=== PATIENT | male | born 1945 | race Caucasian/White ===

== ENCOUNTER 2016-04-09 12:36 | Inpatient (IN) | payer OTHER ==
[~2016-04-09] VITALS: Ht 182.9 cm; Wt 149.1 kg
[2016-04-09] MEDS ORDERED: OXYC15TA89 PO (13:12)
[2016-04-09] MEDS ORDERED: GARL1CAP6 (13:12)
[2016-04-09] MEDS ORDERED: ONDANSETRON INJ 2 MG/ML 2 ML VIAL IV STA (13:47)
[2016-04-09] MEDS ORDERED: MoRPHine SULFATE 4 MG/ML 1 ML CARP\\VIAL IV STA ×2 (13:47→18:09)
[2016-04-09 14:19] LABS: BASO % 0.3 %; BASO ABS # 0.03 K/uL (0-0.2); COMPLETE YES; EOS % 2.1 %; HEMATOCRIT 30.6 % (42-52); IG% 0.6 %; LYMPH % 12.1 %; LYMPH ABS # 1.14 K/uL (1.2-3.4); MEAN CELL VOLUME 91.6 fL (80-100); MEAN CORPUSCULAR HEMOGLOBIN 28.7 pg (25-34); MEAN CORPUSCULAR HGB CONC 31.4 g/dl (32-36); MEAN PLATELET VOLUME 10.7 fL (7.4-10.4); MONO % 9.4 %; NEUT % 75.5 %; PLATELET COUNT 314 K/uL (130-400); RED BLOOD COUNT 3.34 M/uL (4.7-6.1); WHITE BLOOD COUNT 9.39 K/uL (4.8-10.8)
--- NOTE | 2016-04-09 14:37 | DIAGNOSTIC IMAGING REPORT ---
LEFT KNEE 3 VIEWS CLINICAL HISTORY: Knee pain pain COMPARISON: None. DISCUSSION: Severe degenerative change medial joint compartment as well as patellofemoral joint compartment. Reactive osteophytic changes throughout. No evidence for fracture. There is no evidence for soft tissue swelling. IMPRESSION: Severe degenerative change medial joint compartment as well as patellofemoral joint. Electronically signed by: Honorio Dickinson M.D. 04/09/2016 2:36 PM Dictated Date/Time: 04/09/2016 2:36 PM
[2016-04-09 14:38] LABS: BUN/CREATININE RATIO 22.2 (10-20); CALCIUM 9.2 mg/dl (8.5-10.1); CREATININE 1.1 mg/dl (0.60-1.40); POTASSIUM 3.6 mmol/L (3.5-5.1)
[2016-04-09 14:40] LABS: ALB/GLOB RATIO 0.4 (0.9-2)
--- NOTE | 2016-04-09 14:41 | DIAGNOSTIC IMAGING REPORT ---
RIGHT KNEE 3 VIEWS CLINICAL HISTORY: Right knee pain. FINDINGS: AP, crosstable lateral, and sunrise views of the right knee are obtained. No prior studies are available for comparison at the time of dictation. The skeletal structures are osteopenic. No fracture is seen. There is advanced degenerative joint space narrowing in the medial and patellofemoral compartments. There is complete loss of the joint space in the medial compartment with bony sclerosis and subchondral cyst formation. Only mild narrowing is seen in the lateral compartment. There are large medial marginal osteophytes and patellar enthesophytes. There are small lateral marginal osteophytes. A joint effusion is noted. Mild soft tissue swelling is present around the knee. IMPRESSION: 1. Joint effusion and soft tissue swelling. No fracture is seen. 2. Osteopenia and advanced arthritic change as above. Electronically signed by: Reynold Conde M.D. 04/09/2016 2:40 PM Dictated Date/Time: 04/09/2016 2:38 PM
--- NOTE | 2016-04-09 15:11 | EMERGENCY ROOM VISIT NOTE ---
ED Visit Note First contact with patient: 13:30 This Patient was discussed with the physician Barrer And Tacker, Donal Tovar PA-C. The pertinent historical and physical exam findings were confirmed. I agree with the studies ordered and with the interpretations of these studies. I agree with the disposition and care plan.
--- NOTE | 2016-04-09 17:34 | EMERGENCY ROOM VISIT NOTE ---
History First contact with patient: 13:30 Chief Complaint: KNEEPAIN Stated Complaint: KNEE/LEG PAIN History of Present Illness The patient is a 70 year old male who presents to the Emergency Room via ambulance accompanied by daughter and with complaints of "knee/leg pain". Patient states that he has chronic knee pain and wants to be placed in a home for rehabilitation until his knee replacement scheduled in April. He states that he is unable to get around and perform his daily activities of living. The right knee pain is worse than the left. He follows with Dr. Mcgill of [facility] and is scheduled for surgery of right knee replacement 05/27/2016. Patient and family expressed concern as he has been laying in bed for one week. He states he cannot get around because of the knee pain. He is unable to walk secondary to the knee pain. He is tried injections in the knees without relief. He also is requesting something to control his pain. He rates the knee pain bilaterally at rest as a 5/10. If he stands on the knees it increases to a 27/10. Review of Systems A complete 10-point Review of Systems was discussed with the patient, with pertinent positives and negatives listed in the History of Present Illness. All remaining Review of Systems questions can be considered negative unless otherwise specified. Past Medical/Surgical History Medical Problems: (1) Intractable pain Osteoarthritis of knees Social History Smoking Status: Never Smoker Current/Historical Medications Scheduled Oxycodone Hcl (Oxycontin), 15 MG PO Q12 Miscellaneous Medications Garlic (Garlic) Physical Exam Vital Signs Date Time Temp Pulse Resp B/P Pulse Ox O2 Delivery O2 Flow Rate FiO2 04/09/16 20:31 80 18 126/72 92 Room Air 04/09/16 17:58 78 18 120/73 93 Nasal Cannula 04/09/16 16:37 76 20 114/73 95 Room Air 04/09/16 15:07 70 18 100/71 92 Nasal Cannula 2.0 04/09/16 12:47 36.6 68 18 128/69 90 Room Air Pain Rating (0-10): 4.0 Physical Exam VITAL SIGNS - Vital signs and nursing notes were reviewed. Patient is afebrile , he is normotensive, is not tachycardic and is saturating on room air 90%, and uses 2 L at home. GENERAL -70-year-old male appearing his stated age who is in no acute distress. Patient converses well. Communicates well with provider and answers questions appropriately. SKIN - Without rashes. No petechial rashes. No dependent edema in the legs. HEAD - NC/AT. EYES - Sclera anicteric. Palpebral conjunctiva pink and moist with no injection noted. EARS - No deformities of external structures noted on gross examination bilaterally. NOSE - Midline and without cyanosis. No epistaxis or purulent drainage noted. Septum midline without deviation or septal hematoma noted. MOUTH/OROPHARYNX - Without perioral cyanosis. NECK - Neck with FROM. LUNGS - Chest wall symmetric without accessory muscle use, intercostals retractions, or central cyanosis. Normal vesicular breath sounds CTA B/L. No wheezes, rales, or rhonchi appreciated. CARDIAC - RRR with S1/S2. No murmur, rubs, or gallops appreciated. ABDOMEN - Abdominal contour without pulsations or visible masses. BS normoactive all four quadrants. No tenderness, palpable masses, hepatosplenomegaly, or ascites noted. EXTREMITIES - No clubbing or peripheral cyanosis. No pretibial edema present. +5 /5 strength noted in UE/LE bilaterally. There is tenderness with flexion of the knees. There is no erythema or evidence of cellulitis of the knees. NEUROLOGIC - Cranial nerves II through XII grossly intact. Sensory intact to light touch throughout. PSYCH - A&Ox3 and cooperates fully with examiner. Pt is very pleasant and interacts well with examiner. Medical Decision & Procedures ER Provider Diagnostic Interpretation: RIGHT KNEE 3 VIEWS CLINICAL HISTORY: Right knee pain. FINDINGS: AP, crosstable lateral, and sunrise views of the right knee are obtained. No prior studies are available for comparison at the time of dictation. The skeletal structures are osteopenic. No fracture is seen. There is advanced degenerative joint space narrowing in the medial and patellofemoral compartments. There is complete loss of the joint space in the medial compartment with bony sclerosis and subchondral cyst formation. Only mild narrowing is seen in the lateral compartment. There are large medial marginal osteophytes and patellar enthesophytes. There are small lateral marginal osteophytes. A joint effusion is noted. Mild soft tissue swelling is present around the knee. IMPRESSION: 1. Joint effusion and soft tissue swelling. No fracture is seen. 2. Osteopenia and advanced arthritic change as above. Electronically signed by: Reynold Conde M.D. 04/09/2016 2:40 PM Dictated Date/Time: 04/09/2016 2:38 PM LEFT KNEE 3 VIEWS CLINICAL HISTORY: Knee pain pain COMPARISON: None. DISCUSSION: Severe degenerative change medial joint compartment as well as patellofemoral joint compartment. Reactive osteophytic changes throughout. No evidence for fracture. There is no evidence for soft tissue swelling. IMPRESSION: Severe degenerative change medial joint compartment as well as patellofemoral joint. Electronically signed by: Honorio Dickinson M.D. 04/09/2016 2:36 PM Dictated Date/Time: 04/09/2016 2:36 PM Laboratory Results 04/09/16 14:00 Red Blood Count 3.34, Mean Corpuscular Volume 91.6, Mean Corpuscular Hemoglobin 28.7, Mean Corpuscular Hemoglobin Concent 31.4, Mean Platelet Volume 10.7, Neutrophils (%) (Auto) 75.5, Lymphocytes (%) (Auto) 12.1, Monocytes (%) (Auto) 9.4, Eosinophils (%) (Auto) 2.1, Basophils (%) (Auto) 0.3, Neutrophils # (Auto) 7.08, Lymphocytes # (Auto) 1.14, Monocytes # (Auto) 0.88, Eosinophils # (Auto) 0.20, Basophils # (Auto) 0.03 04/09/16 14:00 Test 04/09/16 14:00 White Blood Count 9.39 K/uL (4.8-10.8) Red Blood Count 3.34 M/uL (4.7-6.1) Hemoglobin 9.6 g/dL (14.0-18.0) Hematocrit 30.6 % (42-52) Mean Corpuscular Volume 91.6 fL (80-100) Mean Corpuscular Hemoglobin 28.7 pg (25-34) Mean Corpuscular Hemoglobin Concent 31.4 g/dl (32-36) Platelet Count 314 K/uL (130-400) Mean Platelet Volume 10.7 fL (7.4-10.4) Neutrophils (%) (Auto) 75.5 % Lymphocytes (%) (Auto) 12.1 % Monocytes (%) (Auto) 9.4 % Eosinophils (%) (Auto) 2.1 % Basophils (%) (Auto) 0.3 % Neutrophils # (Auto) 7.08 K/uL (1.4-6.5) Lymphocytes # (Auto) 1.14 K/uL (1.2-3.4) Monocytes # (Auto) 0.88 K/uL (0.11-0.59) Eosinophils # (Auto) 0.20 K/uL (0-0.5) Basophils # (Auto) 0.03 K/uL (0-0.2) RDW Standard Deviation 47.1 fL (36.4-46.3) RDW Coefficient of Variation 14.1 % (11.5-14.5) Immature Granulocyte % (Auto) 0.6 % Immature Granulocyte # (Auto) 0.06 K/uL (0.00-0.02) Anion Gap 8.0 mmol/L (3-11) Est Creatinine Clear Calc Drug Dose 90.3 ml/min Estimated GFR () 79.5 Estimated GFR (Non- 68.6 BUN/Creatinine Ratio 22.2 (10-20) Calcium Level 9.2 mg/dl (8.5-10.1) Total Bilirubin 0.3 mg/dl (0.2-1) Aspartate Amino Transf (AST/SGOT) 93 U/L (15-37) Alanine Aminotransferase (ALT/SGPT) 146 U/L (12-78) Alkaline Phosphatase 128 U/L (45-117) Total Creatine Kinase 36 U/L (39-308) Total Protein 6.9 gm/dl (6.4-8.2) Albumin 2.0 gm/dl (3.4-5.0) Globulin 4.9 gm/dl (2.5-4.0) Albumin/Globulin Ratio 0.4 (0.9-2) Medications Administered Medications (Trade) Dose Ordered Sig/Trang Route Start Time Stop Time Status Last Admin Dose Admin Morphine Sulfate (MoRPHine SULFATE INJ) 4 mg NOW STAT IV 04/09/16 13:47 04/09/16 13:50 DC 04/09/16 14:09 4 MG Ondansetron HCl (Zofran Inj) 4 mg NOW STAT IV 04/09/16 13:47 04/09/16 13:50 DC 04/09/16 14:08 4 MG Morphine Sulfate (MoRPHine SULFATE INJ) 4 mg NOW STAT IV 04/09/16 18:09 04/09/16 18:10 DC 04/09/16 18:32 4 MG Medical Decision Patient was seen and evaluated as above. The patient presents via ambulance for chronic knee pain and once placed in a home or rehabilitation facility for his pain and ambulatory dysfunction. He is companied by his family who was concern over his ability to perform his daily attacks of living as a do have a multi-story home. Patient has been in bed for 1 week straight. Radiographs were obtained of the knees to establish a baseline and her noted above. IV access was initiated. The above workup was completed. His CBC reveals an anemia with hemoglobin of 9.6 and hematocrit of 30.6. No leukocytosis. No Abnormality. BUN is slightly elevated at 24. There is an elevation of the AST and ALTs at 93 and 146 respectively. Alkaline phosphatase is also elevated at 128. Radiograph results as above revealed degenerative changes that are stable. I did discuss the case with Dr. Mcgill at 2:40 PM. Case was thoroughly discussed. We talked about potential options at an extended care facility and working with social workers to help achieve this. Posterior concern is the patient had been in bed for one week straight. We discussed with the patient should likely not be admitted for the knee pain but at the time of discussion we do not have any labs back. Once the patient's labs were obtained it was evident that there was a new onset hemoglobin is I compared this to his previous lab work which was sent from [facility]. The patient's family is concerned that he has been laying in bed for nearly one week now. The patient also has had a change in his hemoglobin as compared to previous blood work. The case was discussed with my attending I do believe the patient would benefit from inpatient management. The case was discussed with the hospitalist who agreed to admit the patient. Please refer to further documentation regarding his stay. In the evaluation and treatment of this patient, the following differential diagnoses were considered: Patellar Fracture, Tibial Plateau Fracture, Distal Femur Fracture, ACL Injury, PCL Injury, Collateral Ligament Injury, Pes Anserine Bursitis, Maisonneuve Fracture. Impression Primary Impression: Knee pain Additional Impressions: Anemia Elevated AST (SGOT) ALT (SGPT) level raised Departure Information Dispostion Admitted as an inpatient Condition FAIR Referrals Melissa Florian M.D. (PCP) Patient Instructions My [facility] Problem Qualifiers Primary Impression: Knee pain Laterality: bilateral Chronicity: chronic Qualified Codes: M25.561 - Pain in right knee; M25.562 - Pain in left knee; G89.29 - Other chronic pain Additional Impressions:
[2016-04-09] MEDS ORDERED: POLYETHYLENE (MIRALAX) 17 GM PACK PO PRN (19:00)
[2016-04-09] MEDS ORDERED: ONDANSETRON INJ 2 MG/ML 2 ML VIAL IV PRN (19:00)
[2016-04-09] MEDS ORDERED: ENOXAPARIN 40 MG/0.4 ML SYR SQ SCH (19:00)
[2016-04-09] MEDS ORDERED: ALUMINUM/MAGNESIUM/SIMETH (MAALOX MAX) 30 ML UDC PO PRN (19:00)
--- NOTE | 2016-04-09 19:31 | History and Physical ---
History & Physical Date & Time of Service: Apr 09, 2016 at 19:05 Chief Complaint: Knee/Leg Pain Primary Care Physician: Melissa Florian M.D. History of Present Illness Source: patient, family 70 y/o M with chronic OA, CHAU, HTN, gout here with c/o of severe knee pain . He has chronic OA and is scheduled for knee surgery on 05/27/16 by . He has severe pain and finds it very hard to accomplish his daily activities without pain. Per family , he has been confined to the bed for about a week due to weakness and pain in his legs. denies any loss of strength and numbness and tingling. pain is mainly in knees with no radiation, 5/10 and >10/10 when worse. denies any CP/SOB/palpitations, N/V/abdominal pain Social History Smoking Status: Never Smoker Allergies Coded Allergies: No Known Allergies (Unverified , 04/09/16) Home Medications Scheduled Amlodipine Besylate (Norvasc), 10 MG PO QAM Aspirin (Aspirin Ec), 81 MG PO QAM Atorvastatin (Lipitor), 10 MG PO HS Benazepril/Hctz (Lotensin Hct), 1 TAB PO QAM Fluoxetine Hcl (Fluoxetine Hcl), 60 MG PO QAM Garlic (Garlic), 1,000 MG PO DAILY Terazosin (Hytrin), 5 MG PO HS Scheduled PRN Colchicine (Colchicine), 0.6 MG PO BID PRN for Gout Flare Up Diclofenac Sodium (Topical) (Voltaren 1% Top Gel), 2 GM TOP QID PRN for Severe Pain Oxycodone/Acetaminophen 10MG/325MG (Percocet 10MG/325MG), 1 TAB PO Q6H PRN for Severe Pain Review of Systems Constitutional: + weakness, No chills, No fever Eyes: No worsening of vision ENT: No hearing loss Respiratory: No cough, No shortness of breath, No sputum Cardiovascular: No chest pain Abdomen: No nausea, No pain, No vomiting Musculoskeletal: + joint pain Genitourinary - Male: No hematuria Psychiatric: + depression symptoms Physical Exam Vital Signs Date Time Temp Pulse Resp B/P Pulse Ox O2 Delivery O2 Flow Rate FiO2 04/09/16 17:58 78 18 120/73 93 Nasal Cannula 04/09/16 16:37 76 20 114/73 95 Room Air 04/09/16 15:07 70 18 100/71 92 Nasal Cannula 2.0 04/09/16 12:47 36.6 68 18 128/69 90 Room Air General Appearance: WD/WN, no apparent distress, + obese Head: normocephalic Eyes: normal inspection ENT: normal ENT inspection, hearing grossly normal Neck: supple Respiratory/Chest: chest non-tender, lungs clear, normal breath sounds, no respiratory distress, no accessory muscle use Cardiovascular: regular rate, rhythm Abdomen/GI: normal bowel sounds, non tender, soft Extremities/Musculoskelatal: no pedal edema Neurologic/Psych: alert, normal mood/affect, oriented x 3 Skin: normal color Diagnostics Laboratory Results Results Past 24 Hours Test 04/09/16 14:00 Range/Units White Blood Count 9.39 4.8-10.8 K/uL Red Blood Count 3.34 4.7-6.1 M/uL Hemoglobin 9.6 14.0-18.0 g/dL Hematocrit 30.6 42-52 % Mean Corpuscular Volume 91.6 80-100 fL Mean Corpuscular Hemoglobin 28.7 25-34 pg Mean Corpuscular Hemoglobin Concent 31.4 32-36 g/dl Platelet Count 314 130-400 K/uL Mean Platelet Volume 10.7 7.4-10.4 fL Neutrophils (%) (Auto) 75.5 % Lymphocytes (%) (Auto) 12.1 % Monocytes (%) (Auto) 9.4 % Eosinophils (%) (Auto) 2.1 % Basophils (%) (Auto) 0.3 % Neutrophils # (Auto) 7.08 1.4-6.5 K/uL Lymphocytes # (Auto) 1.14 1.2-3.4 K/uL Monocytes # (Auto) 0.88 0.11-0.59 K/uL Eosinophils # (Auto) 0.20 0-0.5 K/uL Basophils # (Auto) 0.03 0-0.2 K/uL RDW Standard Deviation 47.1 36.4-46.3 fL RDW Coefficient of Variation 14.1 11.5-14.5 % Immature Granulocyte % (Auto) 0.6 % Immature Granulocyte # (Auto) 0.06 0.00-0.02 K/uL Sodium Level 142 136-145 mmol/L Potassium Level 3.6 3.5-5.1 mmol/L Chloride Level 103 98-107 mmol/L Carbon Dioxide Level 31 21-32 mmol/L Anion Gap 8.0 3-11 mmol/L Blood Urea Nitrogen 24 7-18 mg/dl Creatinine 1.10 0.60-1.40 mg/dl Est Creatinine Clear Calc Drug Dose 90.3 ml/min Estimated GFR () 79.5 Estimated GFR (Non- 68.6 BUN/Creatinine Ratio 22.2 10-20 Random Glucose 103 70-99 mg/dl Calcium Level 9.2 8.5-10.1 mg/dl Total Bilirubin 0.3 0.2-1 mg/dl Aspartate Amino Transf (AST/SGOT) 93 15-37 U/L Alanine Aminotransferase (ALT/SGPT) 146 12-78 U/L Alkaline Phosphatase 128 45-117 U/L Total Creatine Kinase 36 39-308 U/L Total Protein 6.9 6.4-8.2 gm/dl Albumin 2.0 3.4-5.0 gm/dl Globulin 4.9 2.5-4.0 gm/dl Albumin/Globulin Ratio 0.4 0.9-2 Diagnostic Radiology RIGHT KNEE 3 VIEWS CLINICAL HISTORY: Right knee pain. FINDINGS: AP, crosstable lateral, and sunrise views of the right knee are obtained. No prior studies are available for comparison at the time of dictation. The skeletal structures are osteopenic. No fracture is seen. There is advanced degenerative joint space narrowing in the medial and patellofemoral compartments. There is complete loss of the joint space in the medial compartment with bony sclerosis and subchondral cyst formation. Only mild narrowing is seen in the lateral compartment. There are large medial marginal osteophytes and patellar enthesophytes. There are small lateral marginal osteophytes. A joint effusion is noted. Mild soft tissue swelling is present around the knee. IMPRESSION: 1. Joint effusion and soft tissue swelling. No fracture is seen. 2. Osteopenia and advanced arthritic change as above. LEFT KNEE 3 VIEWS CLINICAL HISTORY: Knee pain pain COMPARISON: None. DISCUSSION: Severe degenerative change medial joint compartment as well as patellofemoral joint compartment. Reactive osteophytic changes throughout. No evidence for fracture. There is no evidence for soft tissue swelling. IMPRESSION: Severe degenerative change medial joint compartment as well as patellofemoral joint. Impression Assessment and Plan 70 y/o M with chronic OA, CHAU here with c/o of severe knee pain causing him to be confined to the bed for about a week. Acute worsening of OA: - Decompensated /confined to bed since 1 week - Pain control with Ultram 50 mg q6h - PT/OT Elevated liver enzymes: AST 93, ALT 146, Alk phosphatase 128 likely sec to acetaminophen use in oxycodone Monitor Avoid Tylenol Anemia: Hgb dropped from 11 on 03/18 to 9.6 today no active bleeding Monitor Hgb Hemoccult DVT : SCDs Full code Level of Care Med/Surg Resuscitation Status FULL RESUSCITATION VTE Prophylaxis VTE Risk Assessment Done? Y/N: Yes Risk Level: Moderate Given or contraindicated: SCD's Reviewed: Pt Seen/Exam by Me, RN Notes, HO Notes, Prior Records, Labs History Resident Physician Supervision Note: I was present with Dr. Rhoades during the history and exam. I discussed the case with the resident and agree with the findings and plan as documented in the note. Any exceptions or clarifications are listed here: 70 y/o M with chronic OA, CHAU here with c/o of severe knee pain causing him to be confined to the bed for about a week. EENTM: denies: blurred vision Cardiovascular: denies see HPI Gastrointestinal/Abdominal: negative: abdominal pain Genitourinary: negative discharge Musculoskeletal: negative: back pain Skin: negative: no symptoms reported General Appearance: no apparent distress Eye Exam: bilateral eye normal inspection Ears, Nose, Throat: hearing grossly normal Neck: non-tender Respiratory: chest non-tender Cardiovascular: normal peripheral pulses, no gallop Gastrointestinal: normal bowel sounds, soft Extremities: non-tender, no pedal edema Neurologic/Psychiatric: alert Skin Characteristics: normal color Assessment/Plan A 70 yo comes with Acute worsening of OA: Pain control with Ultram 50 mg q6h DVT proph/PT/OT eval, pain control as per ortho Elevated liver enzymes: AST 93, ALT 146, Alk phosphatase 128 likely sec to acetaminophen use in oxycodone Monitor Avoid Tylenol Anemia: Hgb dropped from 11 on 03/18 to 9.6 today no active bleeding Monitor Hgb Hemoccult DVT : SCDs Full code Documented By: Lizandro Choi time spent 40 min
[2016-04-09] MEDS ORDERED: PATIENT'S ALLERGY INFO NEEDS ENTERED SCH (20:30)
[2016-04-09] MEDS ORDERED: IV FLUIDS COMPLETED PRN (20:45)
[2016-04-09] MEDS ORDERED: AMLO10TA2 PO (21:24)
[2016-04-09] MEDS ORDERED: ASPI81TA28 PO (21:24)
[2016-04-09] MEDS ORDERED: BENA-4 PO (21:24)
[2016-04-09] MEDS ORDERED: TERA5CAP PO (21:24)
[2016-04-09] MEDS ORDERED: FLUO27.5 PO (21:24)
[2016-04-09] MEDS ORDERED: ATOR10TA88 PO (21:24)
[2016-04-09] MEDS ORDERED: DICL1GEL12 TOP (21:24)
[2016-04-09] MEDS ORDERED: OXYC-106 PO (21:24)
[2016-04-09] MEDS ORDERED: COLC0.6T54 PO (21:24)
[2016-04-09] MEDS ORDERED: GARL10007 PO (21:26)
[2016-04-09 21:40] VITALS: BP 118/72; PULSE 71; TEMP 36.9; O2SAT 95
[2016-04-09 21:41] VITALS: O2SAT 94; Ht 182.9 cm; Wt 149.1 kg
[2016-04-09] MEDS: TRAMADOL HCL 50 MG TAB PO PRN (22:04)
[2016-04-10] VITALS (7 sets, daily range): BP systolic 111–123; BP diastolic 71–86; PULSE 69–78; TEMP 36.6–37; O2SAT 89–96
[2016-04-10] MEDS: TRAMADOL HCL 50 MG TAB PO PRN ×2 (05:52→19:22)
[2016-04-10 07:26] LABS: MEAN CELL VOLUME 91.2 fL (80-100); MEAN CORPUSCULAR HEMOGLOBIN 28.6 pg (25-34); MEAN CORPUSCULAR HGB CONC 31.3 g/dl (32-36); PLATELET COUNT 290 K/uL (130-400); RED BLOOD COUNT 3.29 M/uL (4.7-6.1); WHITE BLOOD COUNT 9.13 K/uL (4.8-10.8)
[2016-04-10 07:57] LABS: BUN/CREATININE RATIO 23.3 (10-20); CALCIUM 9.3 mg/dl (8.5-10.1); CREATININE 1.1 mg/dl (0.60-1.40); POTASSIUM 3.4 mmol/L (3.5-5.1)
[2016-04-10] MEDS ORDERED: DICLOFENAC SOD 1% GEL 100 GM TUBE EXT PRN (13:00)
[2016-04-10] MEDS ORDERED: OXYCODONE/ACETAMINOPHEN 10/325MG TAB PO PRN (13:00)
--- NOTE | 2016-04-10 13:02 | Progress Note ---
Subjective Date of Service: Apr 10, 2016. Subjective Pt evaluation today including: conversation w/ patient, physical exam, chart review, lab review, review of studies, conversation w/ erp implementation consultant, review of inpatient medication list Complaining about right knee pain, 6 out of 10 when the rest, getting worse when up and walk, Problem List Medical Problems: (1) ALT (SGPT) level raised Status: Acute (2) Anemia Status: Acute (3) Elevated AST (SGOT) Status: Acute (4) Knee pain Status: Acute Review of Systems Constitutional: + fatigue, No chills, No fever, No problem reported, No sweats , No weakness, No weight loss Eyes: No diplopia, No discharge, No eye pain, No redness, No worsening of vision ENT: No dental problems, No hearing loss, No nasal symptoms, No sore throat, No tinnitus, No trouble swallowing, No unusual epistaxis Respiratory: No cough, No dyspnea at rest, No dyspnea on exertion, No hemoptysis, No shortness of breath, No sputum, No wheezing Cardiac: No PND, No chest pain, No claudication, No edema, No orthopnea, No palpitations Abdomen: No constipation, No diarrhea, No nausea, No pain, No vomiting Musculoskeletal: + joint pain, No calf pain, No muscle pain, No swelling Male : No dysuria, No hematuria, No incontinence, No nocturia more than once/ night, No slowing stream, No urinary frequency Neurologic: No balance problems, No memory loss, No numbness/tingling, No paralysis, No vertigo, No weakness Psychiatric: No anhedonism, No anxiety, No depression symptoms, No insomnia, No substance abuse Heme: No abnormal bleeding/bruising, No clotting problems, No night sweats, No swollen lymph nodes Endo: No excessive thirst, No excessive urination, No fatigue Skin: No bleeding, No color change, No itch, No new/changing skin lesions, No rash Objective Vital Signs Date Time Temp Pulse Resp B/P Pulse Ox O2 Delivery O2 Flow Rate FiO2 04/10/16 08:20 Nasal Cannula 2.0 04/10/16 07:50 36.6 69 16 120/73 96 2.0 04/10/16 00:23 37.0 69 16 123/86 92 Nasal Cannula 2.0 04/09/16 23:35 Nasal Cannula 2.0 04/09/16 21:41 94 Nasal Cannula 2.0 04/09/16 21:40 36.9 71 18 118/72 95 Nasal Cannula 2.0 04/09/16 21:17 94 Nasal Cannula 2.0 04/09/16 21:16 78 20 103/68 94 Nasal Cannula 2.0 04/09/16 20:31 80 18 126/72 92 Room Air 04/09/16 17:58 78 18 120/73 93 Nasal Cannula 04/09/16 16:37 76 20 114/73 95 Room Air 04/09/16 15:07 70 18 100/71 92 Nasal Cannula 2.0 Physical Exam General Appearance: WD/WN, no apparent distress, + obese Eyes: normal inspection, PERRL, EOMI, sclerae normal ENT: normal ENT inspection, hearing grossly normal, pharynx normal Neck: supple, no adenopathy, thyroid normal, no JVD, no carotid bruits, trachea midline Respiratory/Chest: normal breath sounds, no respiratory distress, no accessory muscle use, + decreased breath sounds Cardiovascular: regular rate, rhythm, no edema, no gallop, no JVD, no murmur Abdomen: normal bowel sounds, non tender, soft, no organomegaly, no pulsatile mass Extremities: normal inspection, no pedal edema, no calf tenderness, normal capillary refill, pelvis stable, + pertinent finding (bilateral knee normal inspections, right knee has no red /swelling , mild tender in palpation, no hot , some limited range of motion because of pain) Neurologic/Psychiatric: patrol conductor II-XII nml as tested, no motor/sensory deficits, alert, normal mood/affect, oriented x 3 Skin: normal color, warm/dry, no rash Lymphatic: no adenopathy Laboratory Results Last 24 Hours Test 04/09/16 14:00 04/10/16 07:14 White Blood Count 9.39 K/uL 9.13 K/uL Red Blood Count 3.34 M/uL 3.29 M/uL Hemoglobin 9.6 g/dL 9.4 g/dL Hematocrit 30.6 % 30.0 % Mean Corpuscular Volume 91.6 fL 91.2 fL Mean Corpuscular Hemoglobin 28.7 pg 28.6 pg Mean Corpuscular Hemoglobin Concent 31.4 g/dl 31.3 g/dl Platelet Count 314 K/uL 290 K/uL Mean Platelet Volume 10.7 fL 10.0 fL Neutrophils (%) (Auto) 75.5 % Lymphocytes (%) (Auto) 12.1 % Monocytes (%) (Auto) 9.4 % Eosinophils (%) (Auto) 2.1 % Basophils (%) (Auto) 0.3 % Neutrophils # (Auto) 7.08 K/uL Lymphocytes # (Auto) 1.14 K/uL Monocytes # (Auto) 0.88 K/uL Eosinophils # (Auto) 0.20 K/uL Basophils # (Auto) 0.03 K/uL RDW Standard Deviation 47.1 fL 46.9 fL RDW Coefficient of Variation 14.1 % 14.2 % Immature Granulocyte % (Auto) 0.6 % Immature Granulocyte # (Auto) 0.06 K/uL Sodium Level 142 mmol/L 141 mmol/L Potassium Level 3.6 mmol/L 3.4 mmol/L Chloride Level 103 mmol/L 102 mmol/L Carbon Dioxide Level 31 mmol/L 28 mmol/L Anion Gap 8.0 mmol/L 11.0 mmol/L Blood Urea Nitrogen 24 mg/dl 26 mg/dl Creatinine 1.10 mg/dl 1.10 mg/dl Est Creatinine Clear Calc Drug Dose 90.3 ml/min 96.6 ml/min Estimated GFR () 79.5 79.5 Estimated GFR (Non- 68.6 68.6 BUN/Creatinine Ratio 22.2 23.3 Random Glucose 103 mg/dl 102 mg/dl Calcium Level 9.2 mg/dl 9.3 mg/dl Total Bilirubin 0.3 mg/dl 0.4 mg/dl Aspartate Amino Transf (AST/SGOT) 93 U/L 60 U/L Alanine Aminotransferase (ALT/SGPT) 146 U/L 117 U/L Alkaline Phosphatase 128 U/L 126 U/L Total Creatine Kinase 36 U/L Total Protein 6.9 gm/dl 6.8 gm/dl Albumin 2.0 gm/dl 2.0 gm/dl Globulin 4.9 gm/dl Albumin/Globulin Ratio 0.4 Direct Bilirubin 0.2 mg/dl Assessment and Plan 70 y/o M with chronic OA, CHAU here with c/o of severe knee pain causing him to be confined to the bed for about a week was her admitted to hospital on 2016 Acute worsening of OA, likely OA flair : Still has a lot of pain Pain control with Ultram 50 mg q6h, topical Voltaren cream, and Percocet Patient was seen by Dr. Mcgill, was getting local injection history, is planned to have procedure of right knee in this months I had consulted Dr. Mcgill DVT proph/PT/OT eval, pain control as per ortho Elevated liver enzymes: AST 93, ALT 146, Alk phosphatase 128 , still quite the same as the results yesterday likely sec to acetaminophen use in oxycodone Will avoid Tylenol, and other liver toxic medication Monitor Check hepatitis panel, and ordered right upper quadrant ultrasound Possible chronic Anemia: Hgb dropped from 11 on 03/18 to 9.6 today no active bleeding Monitor Hgb Hemoccult, Anemia panel ordered chronic OA, CHAU, HTN, gout : Continue home medication DVT : SCDs Continued [facility] stay due to: home environment unsafe for pt Discharge planning: home
[2016-04-10] MEDS: OXYCODONE HCL IR 5 MG TAB (IMMEDIATE RELEASE) PO PRN (13:25)
[2016-04-10] MEDS ORDERED: POTASSIUM CHLORIDE 10 MEQ TABCR PO ONE (13:30)
[2016-04-10 14:09] LABS: FERRITIN 2224.3 ng/ml (8.0-388.0)
[2016-04-10] MEDS ORDERED: ATORVASTATIN 10 MG TAB PO SCH (21:00)
--- NOTE | 2016-04-10 21:05 | DIAGNOSTIC IMAGING REPORT ---
ULTRASOUND RIGHT UPPER QUADRANT ABDOMEN CLINICAL HISTORY: Elevated hepatic transaminases. COMPARISON STUDY: No priors. TECHNIQUE: Real-time, grayscale, and color flow sonography of the right upper quadrant of the abdomen was performed. Images are reviewed in the transverse and longitudinal planes. FINDINGS: Liver: The liver is normal in enlarged, measuring over 21 cm in length. The liver demonstrates heterogeneously increased echotexture consistent with hepatic steatosis. There is no intrahepatic biliary ductal dilatation. The main portal vein is patent. Gallbladder: The gallbladder is normal in appearance. No gallstones are identified. There is no gallbladder wall thickening or pericholecystic fluid. A sonographic Wilder's sign is reportedly absent. The common bile duct measures up to 0.5 cm in diameter. Pancreas: Visualized portions of the pancreatic head and body are normal in appearance. The splenic vein is patent. Right kidney: Survey images of the right kidney demonstrate cortical atrophy. There is no hydronephrosis. Ascites: None. IMPRESSION: 1. Hepatomegaly and hepatic steatosis. 2. No gallstones are identified. Electronically signed by: Reynold Conde M.D. 04/10/2016 9:04 PM Dictated Date/Time: 04/10/2016 9:03 PM
[2016-04-11] MEDS: OXYCODONE HCL IR 5 MG TAB (IMMEDIATE RELEASE) PO PRN ×2 (04:20→11:33)
[2016-04-11 06:32] LABS: INR 1.1 (0.9-1.1); PROTHROMBIN TIME (PATIENT) 12.2 SECONDS (9.0-12.0)
[2016-04-11 06:51] LABS: BUN/CREATININE RATIO 21.2 (10-20); CALCIUM 8.6 mg/dl (8.5-10.1); CREATININE 1.1 mg/dl (0.60-1.40); MAGNESIUM 2.1 mg/dl (1.8-2.4); POTASSIUM 3.4 mmol/L (3.5-5.1)
[2016-04-11 07:44] VITALS: BP 132/79; PULSE 79; TEMP 37.2; O2SAT 94
[2016-04-11] MEDS: TRAMADOL HCL 50 MG TAB PO PRN (08:42)
[2016-04-11] MEDS: ASPIRIN 81 MG ECTAB PO SCH (08:42)
[2016-04-11] MEDS: ENALAPRIL MALEATE 10 MG TAB PO SCH (08:43)
[2016-04-11] MEDS: AMLODIPINE BESYLATE 5 MG TAB PO SCH (08:43)
[2016-04-11] MEDS: FLUOXETINE HCL 20 MG CAP PO SCH (08:44)
[2016-04-11] MEDS ORDERED: NON-FORMULARY MEDICATION (Garlic 1,000 MG) PO SCH (09:00)
[2016-04-11] MEDS ORDERED: HYDROCHLOROTHIAZIDE 25 MG TAB PO SCH (09:00)
[2016-04-11 09:19] VITALS: O2SAT 94
[2016-04-11] MEDS ORDERED: PANTOprazole SOD 40 MG TAB PO STA (12:07)
[2016-04-11] MEDS: METHYLPREDNISOLONE IV 40 MG in SYRINGE 0 ML IV SCH ×2 (13:45→20:38)
[2016-04-11] MEDS ORDERED: POTASSIUM CHLORIDE 20 MEQ TABCR PO ONE (14:00)
[2016-04-11 15:14] VITALS: BP 117/68; PULSE 74; TEMP 37.3; O2SAT 92
--- NOTE | 2016-04-11 17:29 | Progress Note ---
Subjective Date of Service: Apr 11, 2016. Subjective Pt evaluation today including: conversation w/ patient, conversation w/ family (daughter), physical exam, chart review, lab review, review of studies (outside records from [facility] ), conversation w/ information technology consultant (orthopedics ), review of inpatient medication list Pain: multiple joints - L elbow, hands, b/l knees but worse on right, ankles PO Intake: normal, robust Voiding: no voiding problems Patient states his polyarticular joint issue has been ongoing "for weeks, probably since ." The joint that bothers him the most is the right knee. He reports having been on 24/7 oxygen since . He apparently had "bronchitis" sometime earlier this year and has been on oxygen since. Denies any pulmonary issues at this time. He denies etoh use. Denies h/o liver disease. Problem List Medical Problems: (1) ALT (SGPT) level raised Status: Acute (2) Anemia Status: Acute (3) Elevated AST (SGOT) Status: Acute (4) Knee pain Status: Acute Review of Systems Constitutional: No chills, No fatigue, No fever Respiratory: No dyspnea on exertion, No shortness of breath Cardiac: No chest pain, No orthopnea Abdomen: No pain Objective Vital Signs Date Time Temp Pulse Resp B/P Pulse Ox O2 Delivery O2 Flow Rate FiO2 04/11/16 16:00 Nasal Cannula 2.0 04/11/16 15:14 37.3 74 20 117/68 92 Room Air 04/11/16 09:19 94 Nasal Cannula 2.0 04/11/16 08:05 Nasal Cannula 2.0 04/11/16 07:44 37.2 79 22 132/79 94 Room Air 04/10/16 23:28 Nasal Cannula 2.0 04/10/16 23:21 93 Nasal Cannula 2.0 04/10/16 23:20 36.7 78 16 122/71 89 Room Air 04/10/16 19:20 Nasal Cannula 2.0 Physical Exam General Appearance: no apparent distress, + obese ENT: pharynx normal Neck: no JVD Respiratory/Chest: lungs clear, no respiratory distress, no accessory muscle use Cardiovascular: regular rate, rhythm, no gallop, no murmur Abdomen: normal bowel sounds, non tender, soft, no organomegaly Extremities: no pedal edema Neurologic/Psychiatric: alert, oriented x 3 Skin: + pertinent finding (scattered gouty tophi over his hands; also, gouty tophus over right forearm) Comments: musculoskeletal - multiple joints with active synovitis - PIPs b/l hands, right shoulder, left elbow (olecrenon bursitis), right elbow (tophus present there as well), b/l knees with right knee effusion present, b/l ankles, b/l first MTPs worse on right; multiple gouty tophi on the hands Laboratory Results Last 24 Hours Test 04/11/16 05:45 Erythrocyte Sedimentation Rate 61 mm/hr Prothrombin Time 12.2 SECONDS Prothromb Time International Ratio 1.1 Sodium Level 142 mmol/L Potassium Level 3.4 mmol/L Chloride Level 103 mmol/L Carbon Dioxide Level 31 mmol/L Anion Gap 8.0 mmol/L Blood Urea Nitrogen 23 mg/dl Creatinine 1.10 mg/dl Est Creatinine Clear Calc Drug Dose 96.6 ml/min Estimated GFR () 79.5 Estimated GFR (Non- 68.6 BUN/Creatinine Ratio 21.2 Random Glucose 116 mg/dl Uric Acid 7.3 mg/dl Calcium Level 8.6 mg/dl Magnesium Level 2.1 mg/dl Total Bilirubin 0.4 mg/dl Direct Bilirubin 0.1 mg/dl Aspartate Amino Transf (AST/SGOT) 47 U/L Alanine Aminotransferase (ALT/SGPT) 103 U/L Alkaline Phosphatase 133 U/L Total Protein 6.6 gm/dl Albumin 1.8 gm/dl Assessment and Plan 70yo male: 1. polyarticular arthritis - exam and labs c/w gouty arthritis. His knee arthritis/pain is superimposed upon severe OA/DJD. Looks to be long-standing given the tophi present. I believe his recent decline in functional status is due, at least in part, to his progressive gout. Will start IV steroids. Stop HCTZ as this drives up the uric acid levels. Then slow steroid taper +/- once daily colchicine. Then allopurinol prophylaxis in about 1 month. 2. abnormal LFTs - hepatic u/s with fatty liver. Obtain labs from [facility] to see if these LFT abnormalities are chronic vs acute vs acute/chronic. Repeat in AM. If these are acute then the ferritin level could be playing a role in this. 3. HTN - stop HCTZ (see #1 above). Cont amlodipine. 4. hypokalemia - 2nd to HCTZ - replace; repeat K in am. 5. anemia - some records from [place] reviewed; he has had 1.5gm drop since March. no overt bleeding. iron studies c/w ACD. B12/folate normal. check retic in AM; repeat CBC in am as well. agree with fecal occult blood. 6. BPH - continue alpha rosalia. No symptoms of UTI, etc at this time. 7. chronic resp failure - 2nd to obesity-hypoventilation syndrome? pulm HTN? other? Has been on continuous O2 since late 2015/early 2017. 8. DVT proph - heparin 5000 TID. PT, OT evals await old records daughter updated Continued [facility] stay due to: inadequate oral pain control, ambulation difficulties
[2016-04-11 20:00] VITALS: O2SAT 92
[2016-04-11] MEDS: HEPARIN SOD 5000 UNIT/0.5 ML CARP SQ SCH (20:40)
[2016-04-11 22:59] VITALS: BP 93/56; PULSE 76; TEMP 36.8; O2SAT 96
--- NOTE | 2016-04-12 01:15 | ORTHOPEDIC CONSULTATION ---
DATE OF CONSULTATION: 04/11/2016 CHIEF COMPLAINT: Intractable knee pain. HISTORY OF PRESENT ILLNESS: This patient is a 70-year-old male with an extensive medical history including osteoarthritis, gout, hypertension and morbid obesity who had seen me one time in the office approximately 2 weeks ago for an initial consultation for knee pain. The patient had severe arthritis of the knees and we had discussed with him the possibility of knee surgery pending medical clearance and workup. Apparently the patient then ended up in the Emergency Room due to intractable pain and inability to ambulate and was admitted to the medical service. The patient reports a history of pneumonia and bronchitis after New Year's. He states that since that time, he has gone downhill. He has not been able to really ambulate at all for about a week due to just generalized weakness and pain. He states that he has "gout all over." MEDICATIONS: See admission history and physical. REVIEW OF SYSTEMS: See admission history and physical. PHYSICAL EXAMINATION: Orthopedic exam limited to the knee shows an obese male who is lying in bed. He has moderate flexion contractures of both knees at about 10 degrees, the knees can be flexed to about 80 degrees with some discomfort. Neither knee is hot or warm. There is a mild effusion. Hip exam is somewhat limited because of his size. X-RAYS: AP and lateral views of the knee shows severe degenerative arthritis and osteopenia. There is tricompartmental degenerative disease with cystic formation, sclerosis and large osteophytes. LABORATORY STUDIES: The patient is anemic, hemoglobin is 9.6. The patient is also extremely malnourished, albumin of 2.0. IMPRESSION: 1. Severe arthritis. 2. Severe malnutrition. 3. Morbid obesity. 4. Gout. 5. Recent history of pneumonia. PLAN: While this patient does have severe arthritis, he is absolutely not a surgical candidate at this time. He needs his albumin and nutritional status to improve. Ideally, we do not operate on people with albumins under 3.5. I agree with supportive measures. The patient may require an extended care facility. We would also recommend nutrition consultation and workup for clinical malnutrition. We will follow patient along and will need probably to follow up after discharge to see if his albumin will improve. Thank you for this consult.
[2016-04-12] MEDS: METHYLPREDNISOLONE IV 40 MG in SYRINGE 0 ML IV SCH ×3 (05:46→21:22)
[2016-04-12] MEDS: HEPARIN SOD 5000 UNIT/0.5 ML CARP SQ SCH ×3 (05:46→21:21)
[2016-04-12 06:38] LABS: URINE APPEARANCE CLEAR (CLEAR); URINE BILIRUBIN NEG (NEG); URINE COLOR YELLOW; URINE NITRITE NEG (NEG); URINE SPECIFIC GRAVITY 1.024 (1.000-1.030); UROBILINOGEN NEG (NEG)
[2016-04-12 06:39] LABS: MANUAL MICROSCOPIC REQUIRED? NO; REVIEW REQ? NO
[2016-04-12 07:39] VITALS: BP 100/75; PULSE 59; TEMP 36.3; O2SAT 95
[2016-04-12 08:02] LABS: HEMATOCRIT 30.1 % (42-52); MEAN CELL VOLUME 91.8 fL (80-100); MEAN CORPUSCULAR HGB CONC 31.6 g/dl (32-36); MEAN PLATELET VOLUME 10.2 fL (7.4-10.4); PLATELET COUNT 294 K/uL (130-400); RED BLOOD COUNT 3.28 M/uL (4.7-6.1); WHITE BLOOD COUNT 12.35 K/uL (4.8-10.8)
[2016-04-12 08:39] LABS: ALB/GLOB RATIO 0.4 (0.9-2); ALKALINE PHOSPHATASE 129 U/L (45-117); ALT/SGPT 91 U/L (12-78); AST/SGOT 36 U/L (15-37); BLOOD UREA NITROGEN 28 mg/dl (7-18); CALCIUM 9.1 mg/dl (8.5-10.1); CARBON DIOXIDE 30 mmol/L (21-32); CHLORIDE 107 mmol/L (98-107); GLUCOSE 145 mg/dl (70-99); POTASSIUM 4.1 mmol/L (3.5-5.1); SODIUM 143 mmol/L (136-145)
[2016-04-12] MEDS: AMLODIPINE BESYLATE 5 MG TAB PO SCH (08:58)
[2016-04-12] MEDS: PANTOprazole SOD 40 MG TAB PO SCH (08:58)
[2016-04-12] MEDS: ASPIRIN 81 MG ECTAB PO SCH (08:58)
[2016-04-12] MEDS: FLUOXETINE HCL 20 MG CAP PO SCH (08:59)
[2016-04-12] MEDS: ENALAPRIL MALEATE 10 MG TAB PO SCH (09:00)
--- NOTE | 2016-04-12 11:38 | PROGRESS NOTE ---
DATE: 04/12/2016 DATE: 04/12/2016. HISTORY OF PRESENT ILLNESS: Mr. Herman is a 70-year-old white male with a history of chronic respiratory failure on chronic supplemental O2 (question obesity hypoventilation syndrome), obstructive sleep apnea, pulmonary hypertension versus other, hypertension, BPH, and poly articulate arthritis consistent with progressive gouty arthritis (multiple gouty tophi are present over various joints) who was admitted acutely on 04/09/2016 with intractable joint pain. Thus far, his workup has revealed a markedly elevated sedimentation rate at 61 mm per hour, and an elevated uric acid level 7.3 mg/dL. Additionally, he was noted to have abnormal LFTs (those values are currently trending down), he has hypoalbuminemia, anemic, and has a markedly elevated serum ferritin level at 2,224.3 ng/mL. The patient is on Methylprednisolone 40 mg IV q. 8 hours and has had a significant improvement in his polyarticular pain. He offers no complaints otherwise. He denies any chest pain, heaviness, tightness, or pressure. No shortness of breath, dyspnea on exertion, orthopnea or PND. No palpitations, syncope, or near syncope. He further denies any fevers, chills, or night sweats. He has not had any nausea, vomiting, abdominal pain, or anorexia. No history of jaundice. PHYSICAL EXAMINATION: VITAL SIGNS: Temperature is 36.3 degree Celsius, pulse is 60 and regular, respiratory rate is 17 and unlabored, blood pressure is 100/75. SPO2 is 95% on 2 liters of oxygen via nasal cannula. GENERAL: The patient is in no acute distress. He is sitting upright in a bedside wheelchair. HEAD, EYES, EARS, NOSE, AND THROAT: Head is atraumatic, normocephalic. EOMs intact. Sclerae are anicteric. Facies symmetric. No perioral cyanosis. NECK: Without thyromegaly, adenopathy or JVD. Carotid upstrokes +2 bilaterally without bruits. CHEST AND LUNGS: Are with occasional late expiratory wheezes. No rales or crackles. CARDIOVASCULAR: S1 and S2 are regular, distant, without obvious murmur, gallop or rub. ABDOMINAL EXAMINATION: Obese. Bowel sounds present. No masses, organomegaly or tenderness. EXTREMITIES: Without clubbing, cyanosis or edema. Multiple gouty tophi are noted over several joints including bilateral elbows, the MCPs, PIPs of his hands. Bilateral knee effusions are present. NEUROLOGIC EXAMINATION: The patient is awake, alert and oriented. Pleasant and cooperative. Answers questions appropriately. Speech is clear. Normal movement in all 4 extremities. Gait pattern not assessed. LABORATORY DATA: White blood cell count is 12.35. Hemoglobin 9.5 g/dl, hematocrit 30.1%. Platelet count 294,000. Erythrocyte sedimentation rate is 61 mm per hour. Absolute reticulocyte count is 0.05. Serum haptoglobin is pending. Sodium is 143 mmol/L, potassium 4.1 mmol/L. BUN 28 mg/dL. Creatinine is 1.10 mg/dL. Random glucose 145 mg/dL. Serum iron level is low at 16 mcg/dL, TIBC is 126.6 g/dL. Transferrin level is low at 98 mcg/dL. Ferritin level is markedly elevated at 2,224.3 ng/mL. Transferrin saturation is pending. Total bilirubin 0.3. AST is normal at 36 units per liter and ALT is down to 91 units per liter. Alkaline phosphatase came down to 129 units per liter. Total protein is 6.8 with an albumin of 1.8, globulin level 5.0. Folic acid level is 7.66 ng/mL and vitamin B12 level is 1142 pg/mL. Stool for occult blood negative. Hemochromatosis DNA is pending. Hepatitis A, hepatitis B, and hepatitis C screening is negative. ASSESSMENT: 1. Acute polyarthritis, question gout. Responding to corticosteroids. 2. Abnormal LFTs in the setting of possible hemochromatosis. Further workup is pending. 3. Chronic respiratory failure, on chronic supplemental O2 -- compensated. 4. Low serum albumin, question malnutrition. 5. Elevated sedimentation rate. 6. Hypertension, controlled. 7. Obesity. 8. Anemia, stable hemoglobin. PLAN: 1. The patient is responding very favorably with IV corticosteroids. 2. Begin tapering corticosteroids tomorrow if continued improvement in joint pain. 3. Remain off of hydrochlorothiazide. 4. Continue current dose of IV corticosteroids. Begin tapering tomorrow with ultimately transitioning to once daily colchicine. 5. Will most likely start allopurinol prophylaxis in about 1 month. 6. Consider GI consultation for abnormal LFTs, question if he may have hemochromatosis. 7. We will continue to follow. MTDD
--- NOTE | 2016-04-12 12:17 | GASTROINTESTINAL CONSULTATION ---
DATE OF CONSULTATION: 04/12/2016 DATE OF CONSULTATION: 04/12/2016. ATTENDING PHYSICIAN: Dr. Handley. CONSULTING PHYSICIAN: Dr. Demarco. REASON FOR CONSULTATION: LFTs, elevated ferritin, fatty liver. HISTORY OF PRESENT ILLNESS: Yosvany humphrey is a 70-year-old male who presented to the hospital with polyarticular arthritis consistent with gout disease as well as anemia and elevated liver panel. He states that his arthritis has been going on for weeks and states that he did develop a pneumonia at home and was treated as well. He presented to the Department of Emergency Medicine here on 04/09/2016 and was admitted for above noted symptoms. Upon arrival to the ER, he was noted to have elevations in his AST 93, ALT 146, alkaline phosphatase 128. Bilirubin was normal. Ferritin level was checked on 04/10/2016 and noted to be 2,224.3 and the patient did have an abdominal ultrasound done on 04/10/2016 as well which showed hepatomegaly and hepatic steatosis, but no gallstones were identified. The patient was seen by Dr. Tenzin Mcgill on consultation for his polyarticular arthritis and was scheduled to have an outpatient knee replacement done. He felt that the patient's malnutrition and overall health status at this point would preclude any immediate surgical intervention and recommended treatment for concurrent medical problems prior to any surgical intervention. At the time I saw the patient, he states that his pain has greatly improved since his arrival to the Department of Emergency Medicine. He has been receiving colchicine therapy as well as oxycodone and tramadol as well as methylprednisolone 40 mg IV q. 8 hours. He states that he does have a history of gouty arthritis though does not take any prophylactic medicine at home and states that he does not think that he has ever been on a medication called allopurinol in the past. He does state that he has colchicine at home though had not been taking it regularly. In regards to his liver disease he states that he has never been told in the past that he has abnormal liver panel. His most recent laboratory testing from 01/21/2016 as an outpatient reveals no abnormalities in his liver panel. The patient denies any alcohol at present. He does admit to "years of heavier than average alcohol use". He does admit to previous binge drinking, though states he has not done this in many years. He states that he has no family history that he knows about concerning chronic liver disease or family history of liver transplantation. He denies any jaundice, acholic stools, dark urine, pruritus, fevers, chills, nausea, vomiting, hematemesis, melena, hematochezia. He further denies any history of ascites and states that he has not had an upper endoscopy in the past but does admit to having a colonoscopy years ago but does not know the results. He denies any further complaints. PAST MEDICAL HISTORY: Includes hypertension, obstructive sleep apnea, osteoarthritis, gout, hypercholesterolemia, depression. PAST SURGICAL HISTORY: None. ALLERGIES: None. MEDICATIONS: At present, Protonix 40 mg p.o. q.a.m., heparin 5,000 units subQ q. 8, methylprednisolone 40 mg IV q. 8, Norvasc 10 mg p.o. q.a.m., Ecotrin 81 mg p.o. q.a.m., Vasotec 20 mg p.o. q.a.m., Prozac 60 mg p.o. q.a.m., Hytrin 5 mg p.o. at bedtime, Roxicodone 10 mg p.o. q. 6 hours p.r.n. pain, colchicine 0.6 mg p.o. b.i.d. p.r.n. gout flare, Maalox 15 mL p.o. q. 4 p.r.n. dyspepsia, MiraLax 17 grams p.o. daily p.r.n. constipation, Zofran 4 mg IV q. 6 p.r.n. nausea, tramadol 50 mg p.o. q. 6 hours p.r.n. pain. SOCIAL HISTORY: He is . He denies any tobacco, alcohol or illicit drug use at present. FAMILY HISTORY: Negative for GI malignancy, inflammatory bowel disease or liver disease. REVIEW OF SYSTEMS: Negative x12 system review other than pertinent positives listed in the HPI. PHYSICAL EXAMINATION: VITAL SIGNS: Temp 36.3, pulse 59, respirations 19, blood pressure 100/75, pulse ox 95% on 2 liters via nasal cannula. GENERAL: He is awake, cooperative, oriented x3 in no acute distress. He is obese. HEAD: Normocephalic, atraumatic. EYES: Pupils are equally round. Extraocular muscles are intact. Sclerae nonicteric. Oropharynx is clear. NECK: Soft, supple. There is no JVD or lymphadenopathy. CHEST: Decreased breath sounds at bilateral bases. CARDIOVASCULAR SYSTEM: Regular rate and rhythm. ABDOMEN: Soft, obese, nontender. There are positive bowel sounds. There is no appreciable hepatosplenomegaly or stigmata of chronic liver disease. SKIN: Soft, pink. Good turgor. EXTREMITIES: No clubbing, cyanosis, or edema. LABORATORY STUDIES: Liver panel was reviewed in the [facility]. Hemoglobin today 9.5, hematocrit 30.1, platelet count of 294, white blood cell count 12.35, sodium 143, potassium 4.1, chloride 107, bicarbonate 30, BUN 28, creatinine 1.1. Blood glucose 145, calcium 9.1, total bili 0.3, AST 36, ALT 91, alkaline phosphatase 129, total protein 6.8, albumin 1.8. IMPRESSION: A 70-year-old male with polyarticular arthritis, elevated liver panel with evidence of hepatomegaly and hepatic steatosis on imaging, anemia with heme negative stool and elevated ferritin level. PLAN: In regards to the patient's polyarticular arthritis, elevated liver panel, abnormal liver imaging study and elevated ferritin level I did have a discussion with Dr. Handley and stated that hemochromatosis cannot present with a cluster of elevated liver panel as well as polyarticular arthritis secondary to iron overload and joints. I asked him to check a hemochromatosis genetic panel which was ordered this morning secondary to his high ferritin level. It should be noted that the high ferritin level alone, does not constitute hemochromatosis as it is an acute phase reactant and may just be elevated secondary to his polyarticular arthritis which has been improving on current therapy with corticosteroids, colchicine and narcotic analgesics. I would recommend continuing supportive care in this regard. I will follow his liver panel, though he has no signs of acute liver failure and then based on most recent outpatient lab work from [facility] it does not appear that his liver disease is chronic at this time based on a single outpatient liver panel however. In regards to his anemia his stool is heme negative at present. I would like to obtain outpatient records for further evaluation of his prior workup with a colonoscopy, though he has never undergone an upper endoscopy. I do not believe that it is warranted at this time as an inpatient and it can be performed as an outpatient either in the [facility] system or with our team. I will make further recommendations regarding workup following review of prior records. I will follow his clinical course and make further recommendations as needed. Once again, thanks for allowing me to participate in the care of this patient. If you have any further questions, please do not hesitate in contacting me.
[2016-04-12] MEDS: TRAMADOL HCL 50 MG TAB PO PRN (13:40)
[2016-04-12] MEDS: COLCHICINE 0.6 MG TAB PO PRN (14:33)
[2016-04-12 14:57] VITALS: BP 110/61; PULSE 61; TEMP 36.6; O2SAT 95
[2016-04-12 23:11] VITALS: BP 136/76; PULSE 73; TEMP 36.7; O2SAT 95
[2016-04-12] MEDS: OXYCODONE HCL IR 5 MG TAB (IMMEDIATE RELEASE) PO PRN (23:39)
[2016-04-13] MEDS: METHYLPREDNISOLONE IV 40 MG in SYRINGE 0 ML IV SCH ×3 (05:30→13:54)
[2016-04-13] MEDS: HEPARIN SOD 5000 UNIT/0.5 ML CARP SQ SCH ×3 (05:32→21:56)
[2016-04-13 06:55] VITALS: BP 127/65; PULSE 74; TEMP 36.4; O2SAT 94
--- NOTE | 2016-04-13 08:44 | Progress Note ---
Subjective Date of Service: Apr 13, 2016. Subjective pt feels much improved still not ambulating well, overall gout is less painful Problem List Medical Problems: (1) ALT (SGPT) level raised Status: Acute (2) Anemia Status: Acute (3) Elevated AST (SGOT) Status: Acute (4) Knee pain Status: Acute Review of Systems Constitutional: + fatigue, + weakness, No chills, No fever Respiratory: No cough, No shortness of breath Cardiac: + edema, No chest pain Abdomen: No diarrhea, No nausea, No pain, No vomiting Male : No dysuria, No urinary frequency Psychiatric: No anhedonism, No depression symptoms Objective Vital Signs Date Time Temp Pulse Resp B/P Pulse Ox O2 Delivery O2 Flow Rate FiO2 04/13/16 06:55 36.4 74 18 127/65 94 Nasal Cannula 2.0 04/12/16 23:35 Nasal Cannula 2.0 04/12/16 23:11 36.7 73 16 136/76 95 Nasal Cannula 2.0 04/12/16 16:00 Nasal Cannula 2.0 04/12/16 14:57 36.6 61 16 110/61 95 Nasal Cannula 2.0 04/12/16 09:42 Nasal Cannula 2.0 Physical Exam General Appearance: + mild distress, + obese Neck: supple, no JVD Respiratory/Chest: chest non-tender, lungs clear, normal breath sounds Cardiovascular: regular rate, rhythm, no murmur Abdomen: normal bowel sounds, non tender, soft Extremities: + swelling, + pertinent finding (no significant joint pain) Neurologic/Psychiatric: alert, oriented x 3 Assessment and Plan 70 M with intractable pain felt secondary to Gouty arthritis Acute polyarthritis, question gout. Responding to corticosteroids, taper and consider colchicine if not improved, allopurinol should start at about the two week sherron from flare so as not to precipitate re flare, did respond well to colchicine in the past Abnormal LFTs in the setting of possible hemochromatosis. Further workup is pending. Chronic respiratory failure, on chronic supplemental O2 -- compensated. Hypertension, controlled. Anemia, stable hemoglobin, marked iron deficiency and high ferritin can also be seen with anemia of chronic disease, does not seem to be a gi blood loss source , supportive care and outpt heme follow up maybe helpful, hemochromatosis studies pending moderate protein malnutrition, no gross proteinuria, pt was with weeks of illness and poor appetite, is looking for ortho surgery 05/27, will need to try ammend nutritional deficiencies before surgery Continued [facility] stay due to: inadequate oral pain control, ambulation difficulties
[2016-04-13] MEDS: PANTOprazole SOD 40 MG TAB PO SCH (08:47)
[2016-04-13] MEDS: ENALAPRIL MALEATE 10 MG TAB PO SCH (08:48)
[2016-04-13] MEDS: ASPIRIN 81 MG ECTAB PO SCH (08:48)
[2016-04-13] MEDS: FLUOXETINE HCL 20 MG CAP PO SCH (08:48)
[2016-04-13] MEDS: AMLODIPINE BESYLATE 5 MG TAB PO SCH (08:48)
[2016-04-13] MEDS: TRAMADOL HCL 50 MG TAB PO PRN ×2 (10:50→21:58)
[2016-04-13] MEDS: COLCHICINE 0.6 MG TAB PO PRN ×2 (10:50→21:58)
--- NOTE | 2016-04-13 13:34 | PROGRESS NOTE ---
DATE: 04/13/2016 GASTROENTEROLOGY PROGRESS NOTE RACE: . I had the pleasure of seeing Yosvany Herman today at his bedside. He is feeling much better today in regards to his arthritis. He did have a bowel movement this morning though denies any blood in his bowel movement or any melena. He denies any fevers, chills, nausea, vomiting, hematemesis or other complaints at this time. PHYSICAL EXAMINATION: VITAL SIGNS: Includes temp 36.4, pulse 74, respirations 18, blood pressure 127/65, pulse ox 94% on 2 liters via nasal cannula. GENERAL: He is obese, cooperative, chronic ill appearing, in no acute distress. ABDOMEN: Soft, nontender, nondistended. Positive bowel sounds. LABORATORY STUDIES: From today include a sodium 143, potassium 4.1, chloride 107, bicarbonate 30, BUN 28, creatinine 1.1, blood glucose 145. AST of 36, ALT of 91, alkaline phosphatase 129, total protein 6.8, albumin 1.8. IMPRESSION: A 70-year-old male with polyarticular arthritis, elevated liver panel, hepatomegaly and hepatic steatosis on imaging, elevated ferritin level, hypoalbuminemia and anemia with heme-negative stool. PLAN: My recommendation at this time would be to continue the patient on his current therapy. He will need to be placed on a prophylactic medication for gout in the future such as allopurinol, it will be interesting to see how his ferritin level and albumin level respond to treatment as both are considered acute phase reactants and hypoalbuminemia can be caused by an acute or chronic illness such as he has currently. Hemochromatosis genetic testing is still pending at this time, consideration could be given to performing a liver biopsy at a later date if testing is inconclusive. I will follow his clinical course here, make further recommendations and I encouraged him to followup in our office as an outpatient when he is eventually discharged following the treatment of his acute illness. Once again, thank you for allowing me to participate in the care of this patient. I did discuss this case in detail with Dr. Joseph Downing of the hospitalist service.
[2016-04-13 14:59] VITALS: BP 117/67; PULSE 68; TEMP 36.4; O2SAT 96
[2016-04-13 15:30] VITALS: O2SAT 96
[2016-04-13] MEDS: OXYCODONE HCL IR 5 MG TAB (IMMEDIATE RELEASE) PO PRN (15:41)
[2016-04-13 22:58] VITALS: BP 131/73; PULSE 68; TEMP 36.7; O2SAT 95
[2016-04-14] MEDS: HEPARIN SOD 5000 UNIT/0.5 ML CARP SQ SCH ×2 (05:58→13:53)
[2016-04-14 06:33] LABS: HEMATOCRIT 30.5 % (42-52); MEAN CORPUSCULAR HEMOGLOBIN 28.1 pg (25-34); MEAN CORPUSCULAR HGB CONC 30.8 g/dl (32-36); MEAN PLATELET VOLUME 10.1 fL (7.4-10.4); PLATELET COUNT 302 K/uL (130-400); RED BLOOD COUNT 3.35 M/uL (4.7-6.1); WHITE BLOOD COUNT 13.22 K/uL (4.8-10.8)
[2016-04-14] MEDS: OXYCODONE HCL IR 5 MG TAB (IMMEDIATE RELEASE) PO PRN ×2 (08:02)
[2016-04-14 08:06] VITALS: BP 143/89; PULSE 72
[2016-04-14] MEDS: AMLODIPINE BESYLATE 5 MG TAB PO SCH (08:07)
[2016-04-14] MEDS: FLUOXETINE HCL 20 MG CAP PO SCH (08:08)
[2016-04-14] MEDS: ASPIRIN 81 MG ECTAB PO SCH (08:08)
[2016-04-14] MEDS: ENALAPRIL MALEATE 10 MG TAB PO SCH (08:08)
[2016-04-14] MEDS: PANTOprazole SOD 40 MG TAB PO SCH (08:09)
[2016-04-14 08:10] VITALS: BP 138/90; PULSE 70; TEMP 36.4; O2SAT 98
[2016-04-14 10:17] VITALS: O2SAT 98
[2016-04-14] MEDS ORDERED: PRED10TA PO (11:22)
[2016-04-14] MEDS ORDERED: VST10 PO (11:22)
[2016-04-14] MEDS ORDERED: ULT50X PO (11:22)
[2016-04-14] MEDS ORDERED: Enteral Nutrition Formula PO (11:22)
[2016-04-14] MEDS ORDERED: RXC5 PO (11:22)
--- NOTE | 2016-04-14 11:31 | Discharge Instructions ---
Discharge Instructions Admission Reason for Admission: Intractable Pain (Nicolle Cano PA-C) Discharge Discharge Diagnosis / Problem: Gout flare (Nicolle Cano PA-C) Discharge Diagnosis / Problem: Elevated ferritin and LFTs of uncertain etiology (Merari Schwab MD) Discharge Goals Goal(s): Decrease discomfort, Improve nutritional status, Learn about illness, Diagnostic testing, Therapeutic intervention, Prevent Disease Progression (Nicolle Cano PA-C) Activity Recommendations Activity Limitations: resume your previous activity . (Nicolle Cano PA-C) Instructions / Follow-Up Instructions / Follow-Up New/changed medications: 1. Enalapril 20 mg by mouth once daily 2. Prednisone mickey- 40 mg by mouth once daily x3 days, 30 mg by mouth once daily x3 days, 20 mg by mouth once daily x2 days, 10 mg by mouth once daily x2 days 3. STOP Atorvastatin 4. STOP Lotensin 5. STOP Percocet 6. Tramadol 50 mg by mouth every 6 hours as needed for pain 7. Oxycodone 5mg by mouth every 6 hours as needed for pain 8. Boost supplement 1 can twice per day 9. Allopurinol 300 mg by mouth once daily You may resume all other regular home medications as prescribed to you Please follow-up with [facility] provider within 24-48 hrs Please follow-up with PCP within 5-7 days from discharge at [facility], Dr. Demarco would like to follow-up with you outpatient. Please call office to schedule an appointment 1-2 weeks after discharge from [place]. Please follow-up/keep all of your subspecialty appointments. (Nicolle Cano PA-C) Current Hospital Diet Patient's current hospital diet: Regular Diet (Nicolle Cano PA-C) Discharge Diet Recommended Diet: Regular Diet (Nicolle Cano PA-C) Procedures Procedures Performed: 1. Knee x-ray 2. Abdominal U/S (Nicolle Cano PA-C) Pending Studies Studies pending at discharge: yes List of pending studies: 1. Hemochromatosis DNA (Nicolle Cano PA-C) Laboratory Results Last 24 Hours Test 04/14/16 06:07 White Blood Count 13.22 K/uL Red Blood Count 3.35 M/uL Hemoglobin 9.4 g/dL Hematocrit 30.5 % Mean Corpuscular Volume 91.0 fL Mean Corpuscular Hemoglobin 28.1 pg Mean Corpuscular Hemoglobin Concent 30.8 g/dl RDW Standard Deviation 47.6 fL RDW Coefficient of Variation 14.3 % Platelet Count 302 K/uL Mean Platelet Volume 10.1 fL (Nicolle Cano ., PA-C) Medical Emergencies . Who to Call and When: Medical Emergencies: If at any time you feel your situation is an emergency, please call 911 immediately. . (Nicolle Cano ., PA-C) Non-Emergent Contact Non-Emergency issues call your: Primary Care Provider Call Non-Emergent contact if: you have a fever, your pain is not controlled, your pain is worsening, your pain is unusual for you, your pain is concerning you, you have any medication questions . (Nicolle Cano ., PA-C) . "Provider Documentation" section prepared by Nicolle Cano. (Nicolle Cano ., PA-C) VTE Core Measure Inpt VTE Proph given/why not?: SCD's (Nicolle Cano ., PA-C)
[2016-04-14] MEDS ORDERED: ALL100 PO (11:48)
--- NOTE | 2016-04-14 11:52 | Discharge Summary ---
Discharge Summary Admission Date: Apr 09, 2016 at 21:02 Discharge Date: Apr 14, 2016 Discharge Disposition: shelter facility Principal Diagnosis: Gout flare Problems/Secondary Diagnoses: 1. Abnormal LFTs in the setting of possible hemochromatosis 2. Chronic respiratory failure 3. Hypertension 4. Anemia 5. Moderate protein malnutrition Procedures: LEFT KNEE 3 VIEWS CLINICAL HISTORY: Knee pain pain COMPARISON: None. DISCUSSION: Severe degenerative change medial joint compartment as well as patellofemoral joint compartment. Reactive osteophytic changes throughout. No evidence for fracture. There is no evidence for soft tissue swelling. IMPRESSION: Severe degenerative change medial joint compartment as well as patellofemoral joint. Electronically signed by: Honorio Dickinson M.D. 04/09/2016 2:36 PM Dictated Date/Time: 04/09/2016 2:36 PM The status of this report is Signed. Draft = Not yet reviewed or approved by Radiologist. Signed = Reviewed and approved by Radiologist. RIGHT KNEE 3 VIEWS CLINICAL HISTORY: Right knee pain. FINDINGS: AP, crosstable lateral, and sunrise views of the right knee are obtained. No prior studies are available for comparison at the time of dictation. The skeletal structures are osteopenic. No fracture is seen. There is advanced degenerative joint space narrowing in the medial and patellofemoral compartments. There is complete loss of the joint space in the medial compartment with bony sclerosis and subchondral cyst formation. Only mild narrowing is seen in the lateral compartment. There are large medial marginal osteophytes and patellar enthesophytes. There are small lateral marginal osteophytes. A joint effusion is noted. Mild soft tissue swelling is present around the knee. IMPRESSION: 1. Joint effusion and soft tissue swelling. No fracture is seen. 2. Osteopenia and advanced arthritic change as above. Electronically signed by: Reynold Conde M.D. 04/09/2016 2:40 PM Dictated Date/Time: 04/09/2016 2:38 PM The status of this report is Signed. Draft = Not yet reviewed or approved by Radiologist. Signed = Reviewed and approved by Radiologist. ULTRASOUND RIGHT UPPER QUADRANT ABDOMEN CLINICAL HISTORY: Elevated hepatic transaminases. COMPARISON STUDY: No priors. TECHNIQUE: Real-time, grayscale, and color flow sonography of the right upper quadrant of the abdomen was performed. Images are reviewed in the transverse and longitudinal planes. FINDINGS: Liver: The liver is normal in enlarged, measuring over 21 cm in length. The liver demonstrates heterogeneously increased echotexture consistent with hepatic steatosis. There is no intrahepatic biliary ductal dilatation. The main portal vein is patent. Gallbladder: The gallbladder is normal in appearance. No gallstones are identified. There is no gallbladder wall thickening or pericholecystic fluid. A sonographic Wilder's sign is reportedly absent. The common bile duct measures up to 0.5 cm in diameter. Pancreas: Visualized portions of the pancreatic head and body are normal in appearance. The splenic vein is patent. Right kidney: Survey images of the right kidney demonstrate cortical atrophy. There is no hydronephrosis. Ascites: None. IMPRESSION: 1. Hepatomegaly and hepatic steatosis. 2. No gallstones are identified. Electronically signed by: Reynold Conde M.D. 04/10/2016 9:04 PM Dictated Date/Time: 04/10/2016 9:03 PM The status of this report is Signed. Draft = Not yet reviewed or approved by Radiologist. Signed = Reviewed and approved by Radiologist. Consultations: GI- [facility]- Dr. Mcgill (Nicolle Cano, PA-C) Medication Reconciliation New Medications: Allopurinol (Allopurinol) 100 Mg Tab 300 MG PO DAILY for 30 Days, #90 TABS Prednisone (Prednisone) 10 Mg Tab 10 MG PO DAILY for 10 Days, #27 TAB 40 mg x3 days, then 30 mg x3 days, then 20 mg x2 days, then 10 mg x2 days Enalapril Maleate (Enalapril Maleate) 10 Mg Tab 20 MG PO QAM for 30 Days, #60 TAB Oxycodone HCl (Oxycodone HCl) 5 Mg Tab 10 MG PO Q6 PRN for Pain for 3 Days, #24 TAB Tramadol HCl (Tramadol HCl) 50 Mg Tab 50 MG PO Q6H PRN for Pain for 3 Days, #12 TAB [Enteral Nutrition Formula] () 1 CAN LIQD 1 CAN PO BID Continued Medications: Amlodipine Besylate (Norvasc) 10 Mg Tab 10 MG PO QAM, TAB Aspirin (Aspirin Ec) 81 Mg Tab 81 MG PO QAM Colchicine (Colchicine) 0.6 Mg Tab 0.6 MG PO BID PRN for Gout Flare Up, TAB Diclofenac Sodium (Topical) (Voltaren 1% Top Gel) 1 % Gel 2 GM TOP QID PRN for Severe Pain Fluoxetine Hcl (Fluoxetine Hcl) 60 Mg Tab 60 MG PO QAM Garlic (Garlic) 1,000 Mg Cap 1000 MG PO DAILY Terazosin (Hytrin) 5 Mg Cap 5 MG PO HS, CAP Discontinued Medications: Atorvastatin (Lipitor) 10 Mg Tab 10 MG PO HS, TAB Benazepril/Hctz (Lotensin Hct) 20 Mg/12.5 Mg Tab 1 TAB PO QAM, TAB Oxycodone/Acetaminophen 10MG/325MG (Percocet 10MG/325MG) Tab 1 TAB PO Q6H PRN for Severe Pain, TAB Referrals At Discharge Follow up Referrals: Family Practice Referral - Please Call For Appointment with Melissa Florian M.D. [employer] Referral - Please Call For Appointment with Khadar Demarco D.O. Discharge Exam Review of Systems: Constitutional: No chills, No fatigue, No fever, No sweats, No weakness Respiratory: No cough, No hemoptysis, No shortness of breath Cardiovascular: No chest pain, No edema, No palpitations Abdomen: No constipation, No diarrhea, No nausea, No pain, No vomiting Musculoskeletal: + joint pain, + muscle pain, No calf pain, No swelling Genitourinary - Male: No dysuria, No hematuria Neurologic: No numbness/tingling, No weakness Psychiatric: No anxiety, No depression symptoms Hematologic / Lymphatic: No abnormal bleeding/bruising Integumentary: No itch, No new/changing skin lesions, No rash Physical Exam: General Appearance: no apparent distress, + obese Eyes: normal inspection, PERRL ENT: hearing grossly normal Neck: supple Respiratory/Chest: lungs clear, no respiratory distress, no accessory muscle use Cardiovascular: regular rate, rhythm Abdomen / GI: normal bowel sounds, non tender, soft Extremities: no calf tenderness, no pedal edema Neurologic/Psychiatric: alert, normal mood/affect, oriented x 3 Skin: normal color, warm/dry, no rash (Nicolle Cano, STEPHANYC) Hospital Course HPI: 70 y/o M with chronic OA, CHAU, HTN, gout here with c/o of severe knee pain . He has chronic OA and is scheduled for knee surgery on 05/27/16 by . He has severe pain and finds it very hard to accomplish his daily activities without pain. Per family , he has been confined to the bed for about a week due to weakness and pain in his legs. denies any loss of strength and numbness and tingling. pain is mainly in knees with no radiation, 5/10 and >10/10 when worse. denies any CP/SOB/palpitations, N/V/abdominal pain Acute polyarthritis, gout: - Responding to corticosteroids--> mickey. Continue Colchicine PRN - Start Allopurinol 300 mg PO daily - Tramadol and Oxycodone for pain management Abnormal LFTs in the setting of possible hemochromatosis: - Hemochromatosis DNA pending at discharge - GI consulted. Dr. Demarco would like to follow-up outpatient after acute flare - Hold Atorvastatin and Percocet due to abnormal LFTs Chronic respiratory failure, on chronic supplemental O2 -- compensated. Hypertension, controlled: - Discontinued Lotensin due to HCTZ component. Started Enalapril 20 mg PO daily. Continue Norvasc Anemia, stable hemoglobin, marked iron deficiency and high ferritin can also be seen with anemia of chronic disease: - Does not seem to be a GI blood loss source, supportive care and outpt heme follow up maybe helpful, hemochromatosis studies pending - Instructed patient to follow-up closely with PCP to further monitor/ evaluation and manage Moderate protein malnutrition, no gross proteinuria: - Patient was with weeks of illness and poor appetite, is looking for ortho surgery 05/27, will need to try amend nutritional deficiencies before surgery - Consulted nutrition. Started boost supplement BID DVT prophylaxis: - Heparin 5000 units SQ q8 hrs Code Status: - LEVEL I, FULL Dispo: Discharge to [facility] Total Time Spent: Greater than 30 minutes This includes examination of the patient, discharge planning, medication reconciliation, and communication with other providers. (Nicolle Cano, SARWAT-C) Discharge Instructions Please refer to the electronic Patient Visit Report (Discharge Instructions) for additional information. (Nicolle Cano, SARWAT-C) Follow-Up Follow-up with [facility] provider within 24-48 hrs Please follow-up with your PCP within 5-7 days from discharge at [facility] Please follow-up with GI within 1-2 weeks from discharge at [facility] Please follow-up/keep all of your subspecialty appointments (Nicolle Cano, PA-C) Additional Copies To Melissa Florian M.D. Reviewed: Pt Seen/Exam by SRAVANTHI Curiel Notes, Labs, RAD (Merari Schwab MD) History Physician Licensing Registration Examiner Supervision Note: I interviewed and examined the patient. Discussed with SARWAT Cano and agree with findings and plan as documented in the note. Any exceptions or clarifications are listed here: Pt feeling much improved. Pain improved, ready for discharge. Vitals reviewed NAD, Obese RRR no mgr CTAB no wcr Abd soft NT ND +BS Ext no effusions, no edema Skin no rashes 70 yo male with diffuse gouty arthritis. Improved on prednisone. Start allopurinol for prophylaxis upon discharge while on prednisone to prevent flare up. Otherwise plan as above. Documented By: Merari Schwab (Merari Schwab MD)
[2016-04-14] MEDS: METHYLPREDNISOLONE IV 40 MG in SYRINGE 0 ML IV SCH (13:49)
[2016-04-14 14:51] VITALS: BP 127/106; PULSE 82; TEMP 36.4; O2SAT 94
[2016-04-14 14:52] VITALS: BP 143/89; PULSE 70; TEMP 36.4; O2SAT 98
[2016-04-14] MEDS ORDERED: PRT40 PO (15:04)
[2016-04-14] MEDS ORDERED: BOOST VANILLA PO SCH ×2 (21:00)
[2016-05-15] MEDS ORDERED: ENAL10TA88 PO (15:18)
[2016-05-15] MEDS ORDERED: OXYC15TA89 PO (15:18)
[2016-05-15] MEDS ORDERED: FRS/40 PO (15:18)
[2016-05-15] MEDS ORDERED: NUTR-7 PO (15:18)
[2016-05-15] MEDS ORDERED: PRED10TA PO (15:18)
[2016-05-15] MEDS ORDERED: ALLO300T2 PO (15:18)
[2016-05-15] MEDS ORDERED: PANT40TA PO (15:18)
== END 2016-04-14 16:16 | DRG 554 ==
LOC: ENRESERVDT → ENRESERVTM → C.EDD 12:41 → EDBEDREQ 20:44 → C.MSN 21:02
PROVIDERS: ADMIT Hospitalist; ATTEND Internal Medicine
DX: M10.9 Gout, unspecified (principal); J96.10 Chronic respiratory failure, unspecified whether with hypoxia or hypercapnia; Z68.41 Body mass index [BMI] 40.0-44.9, adult; E44.0 Moderate protein-calorie malnutrition; M17.0 Bilateral primary osteoarthritis of knee; D64.9 Anemia, unspecified; I10 Essential (primary) hypertension; E87.6 Hypokalemia; N40.0 Benign prostatic hyperplasia without lower urinary tract symptoms; E66.01 Morbid (severe) obesity due to excess calories; G47.33 Obstructive sleep apnea (adult) (pediatric); E78.00 Pure hypercholesterolemia, unspecified; Z79.82 Long term (current) use of aspirin; Z79.899 Other long term (current) drug therapy

== ENCOUNTER 2016-04-28 15:39 | Emergency (ER) | payer OTHER ==
[~2016-04-28] VITALS: Ht 182.9 cm; Wt 152.0 kg
[~2016-04-28 15:39] MED LIST: ALL100 PO; AMLO10TA2 PO; ASPI81TA28 PO; COLC0.6T54 PO; DICL1GEL12 TOP; Enteral Nutrition Formula PO; FLUO27.5 PO; GARL10007 PO; PRT40 PO; RXC5 PO; TERA5CAP PO; ULT50X PO; VST10 PO
[2016-04-28 15:42] VITALS: TEMP 37.5; Ht 182.9 cm; Wt 152.0 kg
--- NOTE | 2016-04-28 16:08 | EMERGENCY ROOM VISIT NOTE ---
History Report prepared by Soha: Ora Good Under the Supervision of: Dr. Reynold Brewster M.D. First contact with patient: 15:48 Chief Complaint: EDEMA TO EXTREMITY Stated Complaint: EDEMA,GAINED ABOUT 10 POUNDS LAST WEEK History of Present Illness The patient is a 70 year old male who presents to the Emergency Room with complaints of worsening bilateral leg edema that began prior to arrival. He currently rates his discomfort as a 6/10 in severity. Per the patient's daughter, the patient was recently evaluated in the hospital two weeks ago for a gout exacerbation. She states that the patient was discharged to a [facility] and states that he has been doing well. The patient's daughter notes that the patient has been following up with an oncologist regarding his ferritin levels today and states that the oncologist was concerned about the patient's increased edema to his bilateral lower extremities. The patient notes a 10 pound weight gain, an increased cough, chills, and increased shortness of breath. The patient reports normal urination, and denies being on any diuretics. The patient denies any fever or chest pain. He states that he has not been using his prescribed c-pap machine at night. The patient's daughter notes that the patient had a cardiac catheterization done one month ago that was normal. Source of History: patient, family Onset: prior to arrival Position: leg (bilateral) Symptom Intensity: 6/10 Quality: other (edema) Timing: worsening Associated Symptoms: + SOB, + chills, + cough, No chest pain, No fevers, No urinary symptoms Note: Associated Symptoms: 10 lb weight gain. Review of Systems See HPI for pertinent positives & negatives. A total of 10 systems reviewed and were otherwise negative. Past Medical & Surgical Medical Problems: (1) Elevated ferritin level (2) Gout attack (3) Intractable pain (4) Intractable pain Family History No pertinent family history stated. Social History Smoking Status: Never Smoker Marital Status: Housing Status: lives with significant other Occupation Status: retired Current/Historical Medications Scheduled Allopurinol (Allopurinol), 300 MG PO DAILY Amlodipine Besylate (Norvasc), 10 MG PO QAM Aspirin (Aspirin Ec), 81 MG PO QAM Enalapril Maleate (Enalapril Maleate), 20 MG PO QAM Fluoxetine Hcl (Fluoxetine Hcl), 60 MG PO QAM Furosemide (Lasix), 20 MG PO QD@08 Garlic (Garlic), 1,000 MG PO DAILY Pantoprazole (Pantoprazole Sodium), 40 MG PO QAM Terazosin (Hytrin), 5 MG PO HS [Enteral Nutrition Formula], 1 CAN PO BID Scheduled PRN Diclofenac Sodium (Topical) (Voltaren 1% Top Gel), 2 GM TOP QID PRN for Severe Pain Oxycodone HCl (Oxycodone HCl), 10 MG PO Q6 PRN for Pain Tramadol HCl (Tramadol HCl), 50 MG PO Q6H PRN for Pain Allergies Coded Allergies: No Known Allergies (Unverified , 04/28/16) Physical Exam Vital Signs Date Time Temp Pulse Resp B/P Pulse Ox O2 Delivery O2 Flow Rate FiO2 04/28/16 18:03 80 16 137/71 96 Room Air 04/28/16 16:26 97 2.0 04/28/16 16:26 93 Room Air 04/28/16 16:25 80 04/28/16 15:42 37.5 85 19 122/74 94 Room Air Physical Exam GENERAL: Patient is in no acute distress. HEENT: No acute trauma, normocephalic atraumatic, mucous membranes moist, no nasal congestion, no scleral icterus. NECK: No stridor, no adenopathy, no meningismus, trachea is midline. LUNGS: Scattered wheezing bilaterally, breath sounds are equal. No crackles, fairly full breath sounds. HEART: Subtle systolic murmur with a regular rhythm and a normal rate. ABDOMEN: Soft, nontender, bowel sounds positive, no hernias, no peritonitis. EXTREMITIES: Moderate lower extremity edema, no cellulitis. No cyanosis, full range of motion of all the joints without pain or difficulty, no signs for acute trauma. NEUROLOGIC: Oriented x 3, no acute motor or sensory deficits, no focal weakness. SKIN: No rash, no jaundice, no diaphoresis. Medical Decision & Procedures ER Provider Diagnostic Interpretation: X ray results and stated below per my interpretation and radiologist interpretation. Other radiology results and stated below per my review and radiologist interpretation: BILATERAL LOWER EXTREMITY VENOUS DOPPLER CLINICAL HISTORY: Lower extremity swelling. COMPARISON STUDY: No previous studies for comparison. TECHNIQUE: Sonography of the deep venous system of the bilateral lower extremities was performed. Compression and augmentation were evaluated. FINDINGS: The bilateral common femoral, superficial femoral and popliteal veins were compressible. Augmentation was normal. Flow was shown within the deep calf vessels. Note was made of a complex fluid collection within the left popliteal fossa that measured 5.7 x 2.1 x 3.2 cm. This contains no color flow. IMPRESSION: 1. No evidence of deep venous thrombus within the bilateral lower extremities. 2. Complex 5.7 x 2.1 x 3.2 cm left popliteal fluid collection which likely represents a popliteal cyst. Electronically signed by: Steve Rivero M.D. 04/28/2016 5:29 PM Dictated Date/Time: 04/28/2016 5:28 PM CHEST ONE VIEW PORTABLE CLINICAL HISTORY: Respiratory distress. Shortness of breath. COMPARISON STUDY: No previous studies for comparison. FINDINGS: The heart is at the upper limits of normal in size. There is mild central vascular prominence without evidence of overt failure. There are right-sided rib deformities likely old. There is no lobar consolidation. There are no pleural effusions.[ IMPRESSION: 1. Mild vascular prominence without evidence of overt failure 2. Right-sided rib fractures. 3. No evidence of lobar consolidation Electronically signed by: Saulo Hernandez M.D. 04/28/2016 4:45 PM Dictated Date/Time: 04/28/2016 4:44 PM Laboratory Results 04/28/16 16:25 Red Blood Count 3.51, Mean Corpuscular Volume 92.6, Mean Corpuscular Hemoglobin 28.5, Mean Corpuscular Hemoglobin Concent 30.8, Mean Platelet Volume 10.5, Neutrophils (%) (Auto) 73.8, Lymphocytes (%) (Auto) 15.3, Monocytes (%) (Auto) 9.6, Eosinophils (%) (Auto) 0.5, Basophils (%) (Auto) 0.2, Neutrophils # (Auto) 7.26, Lymphocytes # (Auto) 1.50, Monocytes # (Auto) 0.94, Eosinophils # (Auto) 0.05, Basophils # (Auto) 0.02 04/28/16 16:25 Test 04/28/16 16:25 White Blood Count 9.83 K/uL (4.8-10.8) Red Blood Count 3.51 M/uL (4.7-6.1) Hemoglobin 10.0 g/dL (14.0-18.0) Hematocrit 32.5 % (42-52) Mean Corpuscular Volume 92.6 fL (80-100) Mean Corpuscular Hemoglobin 28.5 pg (25-34) Mean Corpuscular Hemoglobin Concent 30.8 g/dl (32-36) Platelet Count 146 K/uL (130-400) Mean Platelet Volume 10.5 fL (7.4-10.4) Neutrophils (%) (Auto) 73.8 % Lymphocytes (%) (Auto) 15.3 % Monocytes (%) (Auto) 9.6 % Eosinophils (%) (Auto) 0.5 % Basophils (%) (Auto) 0.2 % Neutrophils # (Auto) 7.26 K/uL (1.4-6.5) Lymphocytes # (Auto) 1.50 K/uL (1.2-3.4) Monocytes # (Auto) 0.94 K/uL (0.11-0.59) Eosinophils # (Auto) 0.05 K/uL (0-0.5) Basophils # (Auto) 0.02 K/uL (0-0.2) RDW Standard Deviation 56.9 fL (36.4-46.3) RDW Coefficient of Variation 16.8 % (11.5-14.5) Immature Granulocyte % (Auto) 0.6 % Immature Granulocyte # (Auto) 0.06 K/uL (0.00-0.02) Prothrombin Time 11.6 SECONDS (9.0-12.0) Prothromb Time International Ratio 1.1 (0.9-1.1) Activated Partial Thromboplast Time 31.5 SECONDS (21.0-31.0) Partial Thromboplastin Ratio 1.2 Anion Gap 8.0 mmol/L (3-11) Est Creatinine Clear Calc Drug Dose 82.6 ml/min Estimated GFR () 65.0 Estimated GFR (Non- 56.1 BUN/Creatinine Ratio 16.3 (10-20) Calcium Level 8.7 mg/dl (8.5-10.1) Magnesium Level 2.1 mg/dl (1.8-2.4) Total Bilirubin 0.6 mg/dl (0.2-1) Aspartate Amino Transf (AST/SGOT) 8 U/L (15-37) Alanine Aminotransferase (ALT/SGPT) 29 U/L (12-78) Alkaline Phosphatase 75 U/L (45-117) Troponin I 0.026 ng/ml (0-0.045) Pro-B-Type Natriuretic Peptide 625 pg/ml (0-900) Total Protein 6.4 gm/dl (6.4-8.2) Albumin 2.4 gm/dl (3.4-5.0) Globulin 4.0 gm/dl (2.5-4.0) Albumin/Globulin Ratio 0.6 (0.9-2) Thyroid Stimulating Hormone (TSH) 1.220 uIu/ml (0.300-4.500) Free Thyroxine 1.46 ng/dl (0.80-1.60) Laboratory results reviewed by me. Medications Administered Medications (Trade) Dose Ordered Sig/Trang Route Start Time Stop Time Status Last Admin Dose Admin Furosemide (Lasix Inj) 40 mg NOW STAT IV 04/28/16 18:22 04/28/16 18:23 DC 04/28/16 18:33 40 MG Oxycodone HCl (Roxicodone Immediate Rel Tab) 10 mg NOW STAT PO 04/28/16 19:27 04/28/16 19:29 DC 04/28/16 19:38 10 MG ECG Indication: SOB/dyspnea, other (edema to bilateral lower extremities) Rate (beats per minute): 85 Rhythm: sinus rhythm Findings: PVC, no acute ischemic change ED Course 1551: The patient was evaluated in room B5. A complete history and physical exam was performed.\ 174: I reevaluated the patient and he is resting comfortably 1813: I reevaluated the patient and he is doing well. I discussed the exam findings with him and his family and I discussed the treatment plan. They all verbalized complete understanding and agreement. The patient is ready to go home once he receives his Lasix. 1821: Ordered Lasix Inj 40 mg IV. 1926: Per nursing staff, the patient is ready to be discharged via wheelchair van. Ordered Oxycodone HCl 10 mg PO. Medical Decision The patient is a 70 year old male who presents to the ED with complaints of lower extremity edema. Differential diagnoses considered include venous insufficiency, DVT, hypoalbuminemia, CHF, heart failure, renal failure, anemia, thyroid disorder, electrolyte imbalance. There is no leukocytosis. The patient is anemic but he has a history of this, the value does not require emergent correction. There was no significant electrolyte abnormality, kidney failure or hepatitis. The patient appears to be in a euthyroid state. There was no coagulopathy. Chest film does not show evidence for CHF or pneumonia. BNP is not elevated making CHF less likely. Bilateral lower extremity ultrasound does not show DVT. EKG shows a sinus rhythm, no ischemia. Cardiac enzyme testing times one is not consistent with acute cardiac injury. The patient is having more difficulty with his rehabilitation because of his weight gain and his pedal edema. He does not appear to require hospitalization. He is not febrile, he is not hypoxic or toxic. The patient was given IV Lasix, he received his typical dose of oral oxycodone. He is being discharged on a small dose of Lasix. He will use compression stockings to help with his edema, leg elevation was encouraged. He will see his doctor for recheck in a few days to see how things are going. If worsening , he can return for reassessment. Impression Primary Impression: Fluid overload Additional Impression: Pedal edema Scribe Attestation The scribe's documentation has been prepared under my direction and personally reviewed by me in its entirety. I confirm that the note above accurately reflects all work, treatment, procedures, and medical decision making performed by me. Departure Information Dispostion Home / Self-Care Prescriptions Furosemide (LASIX) 20 Mg Tab 20 MG PO QD@08, #7 TAB Prov: Reynold Brewster M.D. 04/28/16 Referrals Melissa Florian M.D. (PCP) Forms HOME CARE DOCUMENTATION FORM, IMPORTANT VISIT INFORMATION Patient Instructions My [facility] Additional Instructions start lasix daily to help the swelling wear jaret hose try to keep the legs elevated be sure to follow with your fam md in a day or so return if worsening testing today was ok as we discussed Problem Qualifiers
[2016-04-28 16:26] VITALS: O2SAT 97
[2016-04-28 16:39] LABS: BASO % 0.2 %; BASO ABS # 0.02 K/uL (0-0.2); COMPLETE YES; EOS % 0.5 %; HEMATOCRIT 32.5 % (42-52); IG% 0.6 %; LYMPH % 15.3 %; MEAN CELL VOLUME 92.6 fL (80-100); MEAN CORPUSCULAR HEMOGLOBIN 28.5 pg (25-34); MEAN CORPUSCULAR HGB CONC 30.8 g/dl (32-36); MEAN PLATELET VOLUME 10.5 fL (7.4-10.4); MONO % 9.6 %; NEUT % 73.8 %; PLATELET COUNT 146 K/uL (130-400); RED BLOOD COUNT 3.51 M/uL (4.7-6.1); WHITE BLOOD COUNT 9.83 K/uL (4.8-10.8)
[2016-04-28 16:44] LABS: INR 1.1 (0.9-1.1); PARTIAL THROMBOPLASTIN RATIO 1.2; PROTHROMBIN TIME (PATIENT) 11.6 SECONDS (9.0-12.0)
--- NOTE | 2016-04-28 16:46 | DIAGNOSTIC IMAGING REPORT ---
CHEST ONE VIEW PORTABLE CLINICAL HISTORY: Respiratory distress. Shortness of breath. COMPARISON STUDY: No previous studies for comparison. FINDINGS: The heart is at the upper limits of normal in size. There is mild central vascular prominence without evidence of overt failure. There are right-sided rib deformities likely old. There is no lobar consolidation. There are no pleural effusions.[ IMPRESSION: 1. Mild vascular prominence without evidence of overt failure 2. Right-sided rib fractures. 3. No evidence of lobar consolidation Electronically signed by: Saulo Hernandez M.D. 04/28/2016 4:45 PM Dictated Date/Time: 04/28/2016 4:44 PM
[2016-04-28 16:48] LABS: BUN/CREATININE RATIO 16.3 (10-20); CALCIUM 8.7 mg/dl (8.5-10.1); CREATININE 1.3 mg/dl (0.60-1.40); MAGNESIUM 2.1 mg/dl (1.8-2.4); POTASSIUM 3.8 mmol/L (3.5-5.1)
[2016-04-28 16:58] LABS: ALB/GLOB RATIO 0.6 (0.9-2); THYROID STIMULATING HORMONE 1.22 uIu/ml (0.300-4.500)
--- NOTE | 2016-04-28 17:31 | DIAGNOSTIC IMAGING REPORT ---
BILATERAL LOWER EXTREMITY VENOUS DOPPLER CLINICAL HISTORY: Lower extremity swelling. COMPARISON STUDY: No previous studies for comparison. TECHNIQUE: Sonography of the deep venous system of the bilateral lower extremities was performed. Compression and augmentation were evaluated. FINDINGS: The bilateral common femoral, superficial femoral and popliteal veins were compressible. Augmentation was normal. Flow was shown within the deep calf vessels. Note was made of a complex fluid collection within the left popliteal fossa that measured 5.7 x 2.1 x 3.2 cm. This contains no color flow. IMPRESSION: 1. No evidence of deep venous thrombus within the bilateral lower extremities. 2. Complex 5.7 x 2.1 x 3.2 cm left popliteal fluid collection which likely represents a popliteal cyst. Electronically signed by: Steve Rivero M.D. 04/28/2016 5:29 PM Dictated Date/Time: 04/28/2016 5:28 PM
[2016-04-28 18:03] VITALS: BP 137/71; PULSE 80; O2SAT 96
[2016-04-28] MEDS ORDERED: FUROSEMIDE 40 MG/4 ML VIAL IV STA (18:22)
[2016-04-28] MEDS ORDERED: FURO20TA PO (18:43)
[2016-04-28] MEDS ORDERED: OXYCODONE HCL IR 5 MG TAB (IMMEDIATE RELEASE) PO STA (19:27)
[2016-05-15] MEDS ORDERED: OXYC15TA89 PO (15:18)
[2016-05-15] MEDS ORDERED: FRS/40 PO (15:18)
[2016-05-15] MEDS ORDERED: ENAL10TA88 PO (15:18)
[2016-05-15] MEDS ORDERED: NUTR-7 PO (15:18)
[2016-05-15] MEDS ORDERED: PRED10TA PO (15:18)
[2016-05-15] MEDS ORDERED: ALLO300T2 PO (15:18)
[2016-05-15] MEDS ORDERED: PANT40TA PO (15:18)
== END 2016-04-28 21:24 | disposition home or self-care (01) ==
LOC: C.EDB 15:40
DX: R60.9 Edema, unspecified (principal); M10.9 Gout, unspecified; Z79.82 Long term (current) use of aspirin

== ENCOUNTER → 2016-05-15 | Outpatient (CLI) | payer OTHER ==
[~2016-05-15] VITALS: Ht 182.9 cm; Wt 154.6 kg
[~2016-05-15] MED LIST changes: +ACET-1138 PO; +ALLO300T2 PO; -COLC0.6T54 PO; +ENAL10TA88 PO; +FRS/40 PO; +FURO20TA PO; +MORP-157 PO; +NUTR-7 PO; +ONDA8TAB6 PO; +OXYC15TA89 PO; +OXYC1TAB3 PO; +PANT40TA PO; +PRED10TA PO; +SNK PO
[2016-05-15 15:18] VITALS: Ht 182.9 cm; Wt 154.6 kg
--- NOTE | 2016-05-15 16:08 | PAT Medication Instructions ---
Service Date May 15, 2016. Current Home Medication List Allopurinol (Zyloprim), 300 MG PO QAM Amlodipine Besylate (Norvasc), 10 MG PO QAM Aspirin (Aspirin Ec), 81 MG PO QAM Diclofenac Sodium (Topical) (Voltaren 1% Top Gel), 2 GM TOP QID PRN for Severe Pain Enalapril (Vasotec), 10 MG PO QAM Fluoxetine Hcl (Fluoxetine Hcl), 60 MG PO QAM Furosemide (Lasix), 40 MG PO QAM Garlic (Garlic), 1,000 MG PO QAM Nutritional Supplements (Boost), 1 CAN PO QAM Oxycodone Hcl (Oxycontin), 10 MG PO Q6 PRN for Pain Pantoprazole (Protonix), 40 MG PO QAM Prednisone (Prednisone), 10 MG PO QAM Terazosin (Hytrin), 5 MG PO HS Medication Instructions For Your Scheduled Surgery - Hold the following medications as of 05/15/16: Garlic (Garlic), 1,000 MG PO QAM - Hold the following medications 24 hours prior to surgery: Diclofenac Sodium (Topical) (Voltaren 1% Top Gel), 2 GM TOP QID PRN for Severe Pain - Hold the following medications the morning of surgery: Enalapril (Vasotec), 10 MG PO QAM Furosemide (Lasix), 40 MG PO QAM Nutritional Supplements (Boost), 1 CAN PO QAM - Take the following medications the morning of surgery with a sip of water OTHERWISE NOTHING TO EAT OR DRINK AFTER MIDNIGHT: Allopurinol (Zyloprim), 300 MG PO QAM Amlodipine Besylate (Norvasc), 10 MG PO QAM Aspirin (Aspirin Ec), 81 MG PO QAM Fluoxetine Hcl (Fluoxetine Hcl), 60 MG PO QAM Prednisone (Prednisone), 10 MG PO QAM Pantoprazole (Protonix), 40 MG PO QAM Oxycodone Hcl (Oxycontin), 10 MG PO Q6 PRN for Pain (may take if needed up to 4 hours piror to surgery if needed) - Take the following medications as scheduled the night before surgery: Terazosin (Hytrin), 5 MG PO HS Oxycodone Hcl (Oxycontin), 10 MG PO Q6 PRN for Pain If you have any questions please call us at [phone] or [phone] or [phone]
[2016-05-15 16:35] LABS: BASO % 0.5 %; BASO ABS # 0.04 K/uL (0-0.2); COMPLETE YES; EOS % 1.3 %; HEMATOCRIT 37.3 % (42-52); IG% 1.1 %; LYMPH % 11.4 %; LYMPH ABS # 0.95 K/uL (1.2-3.4); MEAN CELL VOLUME 94.7 fL (80-100); MEAN CORPUSCULAR HEMOGLOBIN 29.2 pg (25-34); MEAN CORPUSCULAR HGB CONC 30.8 g/dl (32-36); MEAN PLATELET VOLUME 10.2 fL (7.4-10.4); MONO % 8.7 %; PLATELET COUNT 291 K/uL (130-400); RED BLOOD COUNT 3.94 M/uL (4.7-6.1); WHITE BLOOD COUNT 8.37 K/uL (4.8-10.8)
[2016-05-16 06:19] LABS: ESTIMATED AVERAGE GLUCOSE 105 mg/dl; HA1C FLAG Normal (Normal)
--- NOTE | 2016-07-23 10:33 | CODING QUERY MEDICAL NECESSITY ---
SUPPORTING DIAGNOSIS NEEDED Dr. Mcgill, A supporting diagnosis is required for the test/procedure performed on this patient in order for us to be reimbursed by the patient's insurance. Please provide a supporting diagnosis for the following test/procedure listed below next to the test name along with your signature. *If there is no additional diagnosis for this patient that would support the following test/procedure please document that below next to the test/procedure. Test(s)/Procedure(s) that require a supporting diagnosis: * [id number] GLYCATED HEMOGLOBIN DIAGNOSIS: DATE OF SERVICE: 05/15/16 Provider Signature: Date: Thank you Alphonse Quiroz [facility] Information Management Once completed, please kindly fax back to [phone] For questions please call [phone]
== END | disposition home or self-care (01) ==
LOC: C.LAB 08:00 → EDSTATUS 05-27 14:00
PROVIDERS: ATTEND Orthopaedic Surgery
DX: Z01.810 Encounter for preprocedural cardiovascular examination (principal); Z01.811 Encounter for preprocedural respiratory examination; Z01.812 Encounter for preprocedural laboratory examination; E11.9 Type 2 diabetes mellitus without complications

== ENCOUNTER 2016-08-08 06:36 | Inpatient (IN) | payer OTHER ==
[2016-08-01 10:20] VITALS: BMI 47.0
--- NOTE | 2016-08-01 10:54 | PAT Medication Instructions ---
Service Date Aug 01, 2016. Current Home Medication List Allopurinol (Zyloprim), 300 MG PO QAM Amlodipine Besylate (Norvasc), 10 MG PO QAM Aspirin (Aspirin Ec), 81 MG PO QAM Diclofenac Sodium (Topical) (Voltaren 1% Top Gel), 2 GM TOP QID PRN for Severe Pain Enalapril (Vasotec), 10 MG PO QAM Fluoxetine Hcl (Fluoxetine Hcl), 60 MG PO QAM Furosemide (Lasix), 0.5 TAB PO QAM Nutritional Supplements (Boost), 1 CAN PO QAM Oxycodone Hcl (Oxycontin), 10 MG PO Q6 PRN for Pain Pantoprazole (Protonix), 40 MG PO QAM Prednisone (Prednisone), 10 MG PO QAM Terazosin (Hytrin), 5 MG PO HS Medication Instructions For Your Scheduled Surgery - Hold the following medications 24 hours prior to surgery: Diclofenac Sodium (Topical) (Voltaren 1% Top Gel), 2 GM TOP QID PRN for Severe Pain - Hold the following medications the morning of surgery: Furosemide (Lasix), 0.5 TAB PO QAM Nutritional Supplements (Boost), 1 CAN PO QAM Enalapril (Vasotec), 10 MG PO QAM - Take the following medications the morning of surgery with a sip of water: Pantoprazole (Protonix), 40 MG PO QAM Prednisone (Prednisone), 10 MG PO QAM Oxycodone Hcl (Oxycontin), 10 MG PO Q6 PRN for Pain Fluoxetine Hcl (Fluoxetine Hcl), 60 MG PO QAM Aspirin (Aspirin Ec), 81 MG PO QAM Allopurinol (Zyloprim), 300 MG PO QAM Amlodipine Besylate (Norvasc), 10 MG PO QAM - Take the following medications as scheduled the night before surgery: Terazosin (Hytrin), 5 MG PO HS Oxycodone Hcl (Oxycontin), 10 MG PO Q6 PRN for Pain If you have any questions please call us at [phone] or [phone] ( Kamila) or [phone]
[2016-08-01 12:10] LABS: BASO % 0.4 %; BASO ABS # 0.03 K/uL (0-0.2); COMPLETE YES; EOS % 0.7 %; HEMATOCRIT 39.7 % (42-52); IG% 0.6 %; LYMPH % 11.5 %; LYMPH ABS # 0.78 K/uL (1.2-3.4); MEAN CELL VOLUME 96.1 fL (80-100); MEAN CORPUSCULAR HGB CONC 31.2 g/dl (32-36); MEAN PLATELET VOLUME 11.7 fL (7.4-10.4); MONO % 5.9 %; NEUT % 80.9 %; PLATELET COUNT 202 K/uL (130-400); RED BLOOD COUNT 4.13 M/uL (4.7-6.1)
[2016-08-01 12:16] LABS: URINE APPEARANCE CLEAR (CLEAR); URINE BILIRUBIN NEG (NEG); URINE COLOR YELLOW; URINE NITRITE NEG (NEG); URINE SPECIFIC GRAVITY 1.021 (1.000-1.030); UROBILINOGEN NEG (NEG); ZZUR CULT IF INDIC CLEAN CATCH NO
[2016-08-01 12:18] LABS: MANUAL MICROSCOPIC REQUIRED? NO; REVIEW REQ? NO
[2016-08-01 12:35] LABS: PROTHROMBIN TIME (PATIENT) 10.8 SECONDS (9.0-12.0)
[2016-08-01 13:44] LABS: BUN/CREATININE RATIO 23.4 (10-20); CREATININE 1.7 mg/dl (0.60-1.40); POTASSIUM 4.2 mmol/L (3.5-5.1)
[2016-08-01 13:50] LABS: CALCIUM 9.1 mg/dl (8.5-10.1)
--- NOTE | 2016-08-07 13:45 | HISTORY & PHYSICAL EXAMINATION ---
DATE OF ADMISSION: 08/08/2016 CHIEF COMPLAINT: Right knee pain. HISTORY OF PRESENT ILLNESS: Yosvany is a 70-year-old male with a multiple year history of right knee pain. He rates his pain a 10/10. He has pain with his daily activities. He has limited standing and walking tolerance. Pain is worse with weightbearing. The patient has had injections and has home exercise program and narcotics without relief. He has failed conservative treatment and is scheduled for right knee replacement. PAST MEDICAL HISTORY: Hypertension, hypercholesterolemia, malnutrition with decreased albumin, anxiety, obesity. He denies heart disease, diabetes or DVT. PAST SURGICAL HISTORY: Left total hip arthroplasty, right arm ORIF. SOCIAL HISTORY: The patient denies alcohol or tobacco use. He lives in a 2-story home. He is and retired. FAMILY HISTORY: Negative for DVT. MEDICATIONS: Enalapril 20 mg daily, fluoxetine 60 mg daily, Tylenol p.r.n., Voltaren gel p.r.n., prednisone 10 mg, Lasix 40 mg, oxycodone 5 mg, pantoprazole 40 mg, terazosin 5 mg, tramadol 50 mg. ALLERGIES: None. REVIEW OF SYSTEMS: See HPI. Ten other systems reviewed, all negative. PHYSICAL EXAMINATION: VITAL SIGNS: Height 6 feet 0 inches, weight 350 pounds, BMI is 47. GENERAL: This is a well-developed, well-nourished male who is alert and oriented x3. Mood and affect are appropriate. HEENT: Normocephalic, atraumatic. Mucous membranes are moist and intact. NECK: Supple without lymphadenopathy. HEART: Regular rate and rhythm without murmurs, rubs or gallops. LUNGS: Clear to auscultation without wheezes or rhonchi. ABDOMEN: Soft and nontender. Bowel sounds are equal and active. EXTREMITIES: No ecchymosis, redness or warmth. Thigh and calf are soft and nontender. He has varus deformity. Range of motion is from 5-110 degrees with +1 laxity. He is neurovascularly intact with +5/5 strength. X-RAY EXAMINATION: AP and lateral views shows severe joint space narrowing with large osteophyte formation. IMPRESSION: 1. Degenerative joint disease, right knee. 2. Morbid obesity. PLAN: The patient will be admitted for a right total knee arthroplasty. He is aware of his comorbidities given his nutritional status and his obesity and wishes to proceed. We will plan on aspirin for DVT prophylaxis. He will have [employer] for home physical therapy.
[2016-08-08] VITALS (9 sets, daily range): BP systolic 98–153; BP diastolic 59–76; PULSE 55–75; TEMP 36.4–36.9; O2SAT 93–97; Ht 182.9 cm; Wt 158.8 kg
[~2016-08-08] VITALS: Ht 182.9 cm; Wt 158.8 kg
[~2016-08-08 06:36] MED LIST changes: -ACET-1138 PO; +ACETAMINOPHEN 500 MG TAB PO SCH; -ALL100 PO; +CEFAZOLIN 3000 MG/65 ML D5W 65 ML IV SCH; -Enteral Nutrition Formula PO; +FAMOTIDINE 20 MG TAB PO SCH; -FURO20TA PO; +GABAPENTIN 300 MG CAP PO SCH; -GARL10007 PO; +HYDROCORTISONE IV 100 MG in SYRINGE 0 ML IV SCH; +LACTATED RINGER'S 1000ML 1,000 ML IV SCH; +LACTATED RINGER'S 1000ML IV SCH; +METOCLOPRAMIDE HCL 10 MG TAB PO SCH; -MORP-157 PO; -ONDA8TAB6 PO; -OXYC1TAB3 PO; +OXYCODONE HCL 10 MG TABCR (OXYCONTIN) PO SCH; -PRT40 PO; -RXC5 PO; -SNK PO; -ULT50X PO; -VST10 PO
[2016-08-08] MEDS ORDERED: BUPIVACAINE 0.5 % 5 MG/1 ML PF 10ML VIAL ONE (07:48)
[2016-08-08] MEDS ORDERED: BUPIVACAINE 0.25% 30 ML VIAL ONE (07:48)
[2016-08-08] MEDS ORDERED: FENTANYL CITRATE INJ 50 MCG/1 ML 2 ML VIAL ONE ×3 (07:54→11:26)
[2016-08-08] MEDS ORDERED: MIDAZOLAM HCL 1 MG/ML 2ML VIAL ONE (07:54)
[2016-08-08] MEDS ORDERED: NURSING VERBAL MED ORDER ONE (08:40)
[2016-08-08] MEDS: TRANEXAMIC ACID INJ 1,000 MG in SODIUM CHLORIDE 0.9% 100ML 100 ML IV SCH ×2 (08:50→13:51)
--- NOTE | 2016-08-08 08:51 | History & Physical Bridge Note ---
H&P Re-Evaluation Bridge Note: I have examined the patient, reviewed the History & Physical and in the interval since the performance of the History & Physical I have noted the following changes of clinical significance: No changes noted
[2016-08-08] MEDS ORDERED: BACITRACIN 50000 UNIT VIAL ONE (09:14)
[2016-08-08] MEDS ORDERED: ORTHO JOINT ANESTHETIC ONE (09:14)
[2016-08-08] MEDS ORDERED: BUPIVACAINE/EPINEPHRINE 0.25% 1:200,000 30 ML VIAL ONE (09:14)
[2016-08-08] MEDS ORDERED: POVIDONE-IODINE OP SOLN 30 ML BTL ONE (09:14)
[2016-08-08] MEDS ORDERED: PHENYLEPHRINE 100MCG/ML 5ML SYR IV PRN (09:15)
[2016-08-08] MEDS ORDERED: EpHEDrine SULFATE INJ 50 MG/ML AMP IV PRN (09:15)
[2016-08-08] MEDS ORDERED: HYDROmorphone INJ 2 MG/ML SYR/VIAL IV PRN (09:15)
[2016-08-08] MEDS ORDERED: ATROPINE SULFATE 0.1 MG/ML 5ML SYR IV PRN (09:15)
[2016-08-08] MEDS ORDERED: ONDANSETRON INJ 2 MG/ML 2 ML VIAL IV PRN ×2 (09:15→11:30)
[2016-08-08] MEDS ORDERED: PROPOFOL IV EMULSION 10 MG/ML 20 ML VIAL IV ONE (09:50)
[2016-08-08] MEDS ORDERED: LIDOCAINE/EPINEPHRINE 2% 1:200,000 20 ML SDV ONE (09:50)
[2016-08-08] MEDS ORDERED: LABETALOL HCL IV 5 MG/ML 20ML IV ONE (09:51)
[2016-08-08] MEDS: ROPIVACAINE 5MG/ML 30 ML 150 MG, BUPIVACAINE/EPINEPHR 0.5% MPF 30 ML, KETOROLAC TROMETH... INFIL SCH ×12 (10:26→10:30)
[2016-08-08] MEDS: VANCOMYCIN INJ 400 MG in NSS 100ML IR SCH ×2 (10:27→10:31)
[2016-08-08] MEDS: POLYMYXIN B SULFATE 100,000 UNITS in NSS 100ML IR SCH ×2 (10:27→10:30)
--- NOTE | 2016-08-08 11:19 | [facility] Post Operative Brief Note ---
Immediate Operative Summary Operative Date Aug 08, 2016. Pre-Operative Diagnosis Degenerative Joint Disease Right Knee Post-Operative Diagnosis Degenerative Joint Disease Right Knee MORBID OBESITY BMI 47 Procedure(s) Performed Right Total Knee Arthroplasty W REVISION COMPONENTS Surgeon Dr. Mcgill Drill Press Hand Surgeon(s) Aury Covarrubias Estimated Blood Loss 5 ml Findings SEVERE DZ Specimens A: Right Knee Bone and Tissue Complication(s) None Disposition Recovery Room / PACU
[2016-08-08] MEDS ORDERED: BISACODYL 10 MG SUPP PR PRN (11:30)
[2016-08-08] MEDS ORDERED: DiphenhydrAMINE HCL 50 MG/ML VIAL IV PRN (11:30)
[2016-08-08] MEDS ORDERED: MAGNESIUM HYDROXIDE SUSP 30 ML UDC PO PRN (11:30)
[2016-08-08] MEDS ORDERED: ZOLPIDEM TARTRATE 5 MG TAB PO PRN (11:30)
[2016-08-08] MEDS ORDERED: TRAMADOL HCL 50 MG TAB PO PRN (11:30)
[2016-08-08] MEDS ORDERED: SOD PHOSPHATE/SOD BIPHOSPHATE ENEMA 132 ML BTL PR PRN (11:30)
[2016-08-08] MEDS ORDERED: MoRPHine SULFATE 2 MG/ML CARP IV PRN (11:30)
[2016-08-08] MEDS ORDERED: METOCLOPRAMIDE HCL INJ 5 MG/ML 2 ML VIAL IV PRN (11:30)
[2016-08-08] MEDS ORDERED: OXYCODONE HCL IR 5 MG TAB (IMMEDIATE RELEASE) PO PRN (11:30)
[2016-08-08] MEDS ORDERED: ALUMINUM/MAGNESIUM/SIMETH (MAALOX MAX) 30 ML UDC PO PRN (11:30)
[2016-08-08] MEDS ORDERED: MoRPHine SULFATE 2 MG/ML CARP ONE (11:32)
[2016-08-08] MEDS ORDERED: MoRPHine SULFATE PF 1 MG/ML 10 ML AMP/VIAL ONE (11:45)
--- NOTE | 2016-08-08 12:06 | OPERATIVE REPORT ---
DATE OF OPERATION: 08/08/2016 PREOPERATIVE DIAGNOSES: 1. Degenerative arthritis, right knee, severe. 2. Morbid obesity, BMI of 48. PROCEDURE: Right total knee with revision components. SURGEON: Kane Mcgill MD ACETYLENE OPERATOR: SARWAT Navarro ANESTHESIA: Spinal. TOURNIQUET TIME: 95 minutes at 350 mmHg. DRAINS: Hemovac x2. CULTURES: None. COMPLICATIONS: None. COMPONENTS USED: [employer] revision knee system: Femur size 8, 4-mm offset, 20 x 120 stem. Tibia size 7, 6-mm offset, 16 x 120 stem. Tibial insert 9 high flex. Patella size 41. NOTE: SARWAT Navarro was present and assisted throughout due to the complicated nature of this case. She helped with preparation and set up, first assisted throughout and personally closed the capsule, subcutaneous and skin layers and applied the postoperative dressing. NOTE: Additional time and difficulty was required because of this patient's size. The surgery took at least an extra 25-30 minutes because of exposure and required additional instrumentation including stems because of his morbid obese body habitus with a body weight of over 320 pounds and a short heavy leg. DESCRIPTION OF PROCEDURE: Following satisfactory spinal, the patient was supine. A tourniquet was placed. The lower extremity was prepared with ChloraPrep and draped sterilely. Following a surgical time-out, a midline incision was made with a trivector approach. The knee showed severe degenerative changes. The exposure was difficult. Large osteophytes present and were removed. Using the IM system, the distal femur was with difficulty sized and shaped for a size 8 component. When all cuts were completed, attention was turned to the tibia. The tibia IM system was used. The tibia was sized and prepared with the above components. The patella was freehand cut. Soft tissue balancing was completed and a trial reduction showed good tension stability on the collateral ligaments and stable range of motion. Range of motion was limited by the size of the patient's leg. The trial component was removed. Cement restriction plugs were placed. The components were assembled and following the orthopedic cocktail and irrigation, the components were cemented using Simplex G cement. A Betadine soak was performed while the cement was hardening. When the cement had hardened, the Betadine was irrigated. Two drains were placed. The arthrotomy was closed with a running suture of 0 V-Loc and reinforced throughout with #1 Vicryl. Subcutaneous fat layers were closed with 1 and 2-0 Vicryl. The skin was closed with a running subcuticular stitch of 3-0 V-Loc. Dermabond and a surface wound VAC were applied. The tourniquet was deflated. The patient was returned to his bed in stable condition. I attest to the content of the Intraoperative Record and any orders documented therein. Any exceptions are noted below. SHYAM
--- NOTE | 2016-08-08 12:26 | DIAGNOSTIC IMAGING REPORT ---
TWO VIEWS RIGHT KNEE CLINICAL HISTORY: Postoperative examination. FINDINGS: AP and crosstable lateral portable views of the right knee are obtained. A right knee arthroplasty is in near anatomic alignment. There has been undersurface remodeling of the patella. There are long tibial and femoral stems. No acute fracture is seen. There are expected postoperative changes around the knee including a surgical drain, soft tissue edema, and subcutaneous gas. There is an exostosis versus bony overgrowth arising from the medial tibial plateau. Atherosclerotic calcification is noted in the popliteal artery. IMPRESSION: Expected postoperative changes status post right knee arthroplasty. No acute fracture is seen. Electronically signed by: Reynold Conde M.D. 08/08/2016 12:25 PM Dictated Date/Time: 08/08/2016 12:24 PM
--- NOTE | 2016-08-08 12:35 | Anesthesiology Progress Note ---
Anesthesia Post Op Note Date & Time Aug 08, 2016 at 12:35 Vital Signs Pain Intensity: 0 Vital Signs Past 12 Hours Date Time Temp Pulse Resp B/P (MAP) Pulse Ox O2 Delivery O2 Flow Rate FiO2 08/08/16 12:30 36.6 71 14 132/80 97 Nasal Cannula 2 08/08/16 11:47 36.2 70 12 157/96 92 Nasal Cannula 2 08/08/16 07:03 36.9 75 22 153/75 95 Room Air Notes Mental Status: alert / awake / arousable, participated in evaluation Pt Amnestic to Procedure: Yes Nausea / Vomiting: adequately controlled Pain: adequately controlled Airway Patency, RR, SpO2: stable & adequate BP & HR: stable & adequate Hydration State: stable & adequate Anesthetic Complications: no major complications apparent
[2016-08-08] MEDS ORDERED: OXYC1TAB3 PO (12:43)
[2016-08-08] MEDS: D5W AND 1/2NSS + 20MEQ KCL 1,000 ML IV SCH (13:48)
[2016-08-08] MEDS ORDERED: HydrALAZINE HCL 20 MG/ML VIAL IV. PRN (15:15)
--- NOTE | 2016-08-08 15:35 | Medical Consult ---
Consultation Date of Consultation: Aug 08, 2016. Attending Physician: Kane Mcgill M.D. Reason for Consultation: Medical management History of Present Illness This is a 70 y/o male with a history of HTN, HLD, gout, inflammatory polyarthritis, anxiety and depression, and lower extremity edema who presents s/ p right TKA with Dr. Mcgill on 08/08 for medical management. The patient reports feeling well postoperatively. He does report some intermittent right knee pain but states that it is tolerable. He is still somewhat numb from anesthesia. The patient was able to eat lunch without any difficulties. He has not yet urinated, but feel that he will soon. He has not passed gas or had a bowel movement yet postoperatively. The patient denies fevers, chills, sweats , chest pain, palpitations, claudication, cough, wheezing, shortness of breath, nausea, vomiting, abdominal pain, dysuria, hematuria, urinary retention, paralysis, weakness. Past Medical/Surgical History Medical Problems: (1) ALT (SGPT) level raised Status: Acute (2) Anemia Status: Acute (3) Elevated AST (SGOT) Status: Acute (4) Fluid overload Status: Acute (5) Knee pain Status: Acute (6) Pedal edema Status: Acute Family History Diabetes mellitus Gastric cancer Heart disease Hypertension Social History Smoking Status: Never Smoker Smokeless Tobacco Use: No Alcohol Use: none Drug Use: none Marital Status: Housing Status: lives with significant other Occupation Status: retired Allergies Coded Allergies: No Known Allergies (Unverified , 08/08/16) Current Inpatient Medications Current Inpatient Medications Medications (Trade) Dose Ordered Sig/Trang Route Start Time Stop Time Status Last Admin Dose Admin Lactated Ringer's 1,000 ml @ 15 mls/hr Q24H IV 08/08/16 06:00 08/09/16 05:59 Lactated Ringer's 1,000 ml @ 60 mls/hr [id number] IV 08/08/16 06:00 08/08/16 22:39 08/08/16 07:08 60 MLS/HR Cefazolin Sodium 65 ml @ 100 mls/hr PREOP IV 08/08/16 06:00 08/08/16 18:00 08/08/16 09:34 100 MLS/HR Acetaminophen (Tylenol Tab) 1,000 mg PREOP PO 08/08/16 06:00 6/9/17 18:00 08/08/16 07:50 1,000 MG Famotidine (Pepcid Tab) 20 mg PREOP PO 08/08/16 06:00 08/08/16 18:00 08/08/16 07:51 20 MG Gabapentin (Neurontin Cap) 900 mg PREOP PO 08/08/16 06:00 08/08/16 18:00 08/08/16 07:51 900 MG Metoclopramide HCl (Reglan Tab) 10 mg PREOP PO 08/08/16 06:00 08/08/16 18:00 08/08/16 07:51 10 MG Oxycodone HCl (Oxycontin Tab) 10 mg PREOP PO 08/08/16 06:00 08/08/16 18:00 Tranexamic Acid 1000 mg/Sodium Chloride 110 ml @ 660 mls/hr TODAY@06,0630 IV 08/08/16 06:00 08/08/16 18:00 08/08/16 08:50 660 MLS/HR Polymyxin B Sulfate 512194 units/Sodium Chloride 102 ml @ 0 mls/hr 0600 IR 08/08/16 06:00 08/08/16 18:00 08/08/16 10:30 102 MLS/HR Vancomycin HCl 400 mg/Sodium Chloride 108 ml @ 0 mls/hr 0600 IR 08/08/16 06:00 08/08/16 18:00 08/08/16 10:31 108 MLS/HR Potassium Chloride/Dextrose/ Sod Cl 1,000 ml @ 100 mls/hr Q10H IV 08/08/16 14:00 08/09/16 11:19 08/08/16 13:48 100 MLS/HR Cefazolin Sodium 2000 mg/Dextrose 60 ml @ 100 mls/hr Q8H IV 08/08/16 18:00 08/09/16 02:35 Oxycodone HCl (Roxicodone Immediate Rel Tab) 1 TABLET FOR PAIN RATING... Q4H PRN PO 08/08/16 11:30 08/22/16 11:29 Morphine Sulfate (MoRPHine SULFATE INJ) 3 mg Q2HWA PRN IV 08/08/16 11:30 08/22/16 11:29 Acetaminophen (Tylenol Tab) 1,000 mg Q8H PO 08/08/16 16:00 09/07/16 11:29 Magnesium Hydroxide (Milk Of Magnesia Susp) 30 ml Q6H PRN PO 08/08/16 11:30 09/07/16 11:29 Bisacodyl (Dulcolax Supp) 10 mg DAILY PRN LA 08/08/16 11:30 09/07/16 11:29 Sodium Biphosphate/ Sodium Phosphate (Fleet Enema) 132 ml DAILY PRN LA 08/08/16 11:30 09/07/16 11:29 Senna (Senokot Tab) 17.2 mg HS PO 08/08/16 21:00 09/07/16 20:59 Diphenhydramine HCl (Benadryl Cap) 25 mg Q8H PRN PO 08/08/16 11:30 09/07/16 11:29 Diphenhydramine HCl (Benadryl Inj) 25 mg Q8H PRN IV 08/08/16 11:30 09/07/16 11:29 Al Hydrox/Mg Hydrox/Simethicone (Maalox Max Susp) 15 ml Q4H PRN PO 08/08/16 11:30 09/07/16 11:29 Zolpidem Tartrate (Ambien Tab) 5 mg HSZ PRN PO 08/08/16 11:30 09/07/16 11:29 Multivitamins (Multivitamin Tab) 1 tab QAM PO 08/09/16 09:00 09/08/16 08:59 Ondansetron HCl (Zofran Inj) 4 mg Q6H PRN IV 08/08/16 11:30 09/07/16 11:29 Metoclopramide HCl (Reglan Inj) 10 mg Q6H PRN IV 08/08/16 11:30 09/07/16 11:29 Pantoprazole Sodium (Protonix Tab) 40 mg QAM PO 08/09/16 09:00 09/08/16 08:59 Tramadol HCl (Ultram Tab) 1 tablet for pain rating... Q4H PRN PO 08/08/16 11:30 09/07/16 11:29 Tranexamic Acid 1000 mg/Sodium Chloride 110 ml @ 660 mls/hr Q6H IV 08/08/16 18:00 08/08/16 18:09 Aspirin (Ecotrin Tab) 81 mg BID PO 08/08/16 21:00 09/07/16 20:59 Allopurinol (Zyloprim Tab) 300 mg QAM PO 08/09/16 09:00 09/08/16 08:59 Amlodipine Besylate (Norvasc Tab) 10 mg QAM PO 08/09/16 09:00 09/08/16 08:59 Enalapril Maleate (Vasotec Tab) 10 mg QAM PO 08/09/16 09:00 09/08/16 08:59 Future Hold Furosemide (Lasix Tab) 20 mg QAM PO 08/09/16 09:00 09/08/16 08:59 Future Hold Enteral Nutritional Formula (Boost) 1 can QAM PO 08/09/16 09:00 09/08/16 08:59 Prednisone (PredniSONE TAB) 10 mg BID PO 08/08/16 21:00 09/07/16 20:59 Terazosin HCl (Hytrin Cap) 5 mg HS PO 08/08/16 21:00 09/07/16 20:59 Fluoxetine HCl (Prozac Cap) 60 mg QAM PO 08/09/16 09:00 09/08/16 08:59 Cholecalciferol (Vitamin D Tab) 5,000 inter.unit QAM PO 08/09/16 09:00 09/08/16 08:59 Oxycodone HCl (Oxycontin Tab) 10 mg Q12H PO 08/08/16 20:00 08/22/16 19:59 Hydralazine HCl (HydrALAZINE INJ) 10 mg Q6H PRN IV. 08/08/16 15:15 09/07/16 15:14 Review of Systems See HPI for pertinent positives and negatives. All other systems reviewed and negative. Physical Exam Date Time Temp Pulse Resp B/P (MAP) Pulse Ox O2 Delivery O2 Flow Rate FiO2 08/08/16 15:17 36.4 61 14 114/63 (80) 97 Nasal Cannula 3.0 08/08/16 14:15 58 18 108/67 (81) 95 Nasal Cannula 3.0 08/08/16 13:43 56 18 110/65 (80) 97 Nasal Cannula 3.0 08/08/16 13:15 36.4 68 16 114/73 (87) 95 Nasal Cannula 2.0 08/08/16 13:15 Nasal Cannula 2.0 08/08/16 13:15 Nasal Cannula 2.0 08/08/16 12:58 72 15 97 08/08/16 12:58 66 15 08/08/16 12:53 70 17 94 08/08/16 12:53 69 17 08/08/16 12:48 69 17 93 08/08/16 12:48 69 17 08/08/16 12:47 70 16 117/72 93 08/08/16 12:47 71 16 08/08/16 12:42 70 18 08/08/16 12:42 69 18 97 08/08/16 12:37 67 15 08/08/16 12:37 69 15 91 08/08/16 12:32 71 14 08/08/16 12:32 71 14 132/80 97 08/08/16 12:30 36.6 71 14 132/80 97 Nasal Cannula 2 08/08/16 12:27 68 15 08/08/16 12:27 66 15 125/80 97 08/08/16 12:22 69 14 117/82 93 08/08/16 12:22 70 14 08/08/16 12:17 70 15 128/80 98 08/08/16 12:17 70 15 08/08/16 12:12 66 13 08/08/16 12:12 68 13 126/68 96 08/08/16 12:07 69 16 119/81 97 08/08/16 12:07 66 16 08/08/16 12:02 66 29 08/08/16 12:02 68 29 130/81 94 08/08/16 11:57 70 18 08/08/16 11:57 73 18 132/81 94 08/08/16 11:52 70 23 124/86 95 08/08/16 11:52 69 23 08/08/16 11:49 157/96 08/08/16 11:47 36.2 70 12 157/96 92 Nasal Cannula 2 08/08/16 07:03 36.9 75 22 153/75 95 Room Air General Appearance: WD/WN, no apparent distress, + obese (morbidly obese) Head: normocephalic, atraumatic Eyes: normal inspection, PERRL, EOMI ENT: normal ENT inspection, hearing grossly normal, pharynx normal Neck: supple, no JVD, trachea midline Respiratory/Chest: lungs clear, normal breath sounds, no respiratory distress Cardiovascular: regular rate, rhythm, no gallop, no murmur Abdomen/GI: normal bowel sounds, non tender, soft Extremities/Musculoskelatal: no calf tenderness, normal capillary refill, + swelling (1+ pitting edema), + pertinent finding (RLE wrapped in nataliia bandage) Neurologic/Psych: alert, normal mood/affect, oriented x 3 Skin: normal color, warm/dry, no rash Laboratory Results Last 24 Hours Test 08/08/16 15:11 Assessment & Plan 70 y/o male with a history of HTN, HLD, gout, inflammatory polyarthritis, anxiety and depression, BPH and lower extremity edema who presents s/p right TKA with Dr. Mcgill on 08/08 for medical management. -Pain management, DVT prophylaxis, and PT/OT as per primary team -POD #0 HTN--stable -Continue amlodipine 10 mg PO qd -Hold enalapril for now until renal function checked/stable. Pre op labs on 08/01 showed elevated creatinine of 1.7, baseline 1.1 -Cover with hydralazine 10 mg IV q6h prn SBP >180 Gout/polyarthritis -Continue allopurinol 300 mg PO qd -Increase Prednisone to 20 mg PO qd for stress dosing Anxiety and depression -Continue fluoxetine 60 mg PO qd BPH -Continue terazosin 5 mg PO qhs Lower extremity edema -Hold Lasix for now until renal function checked Code Status -Level I, FULL RESUSCITATION STATUS Thank you for this consultation. We will continue to follow. Assessment and Plan Attending Addendum: I have physically seen and examined this patient, directed their medical care, supervised the Physician Medical Information Officer's activity, and agree with the H&P as noted above, with the following changes: NONE.
[2016-08-08] MEDS: ACETAMINOPHEN 500 MG TAB PO SCH (15:43)
[2016-08-08 15:56] LABS: BASO % 0.2 %; BASO ABS # 0.02 K/uL (0-0.2); COMPLETE YES; EOS % 0.5 %; HEMATOCRIT 34.6 % (42-52); IG% 0.3 %; LYMPH % 9.4 %; LYMPH ABS # 0.87 K/uL (1.2-3.4); MEAN CELL VOLUME 95.3 fL (80-100); MEAN CORPUSCULAR HEMOGLOBIN 29.5 pg (25-34); MEAN CORPUSCULAR HGB CONC 30.9 g/dl (32-36); MEAN PLATELET VOLUME 10.8 fL (7.4-10.4); MONO % 3.7 %; NEUT % 85.9 %; PLATELET COUNT 153 K/uL (130-400); RED BLOOD COUNT 3.63 M/uL (4.7-6.1); WHITE BLOOD COUNT 9.29 K/uL (4.8-10.8)
[2016-08-08 16:20] LABS: BUN/CREATININE RATIO 24.4 (10-20); CREATININE 1.5 mg/dl (0.60-1.40)
[2016-08-08 17:00] LABS: CALCIUM 8.4 mg/dl (8.5-10.1)
[2016-08-08] MEDS ORDERED: TRANEXAMIC ACID INJ 1,000 MG in SODIUM CHLORIDE 0.9% 100ML 100 ML IV SCH (18:00)
[2016-08-08] MEDS: CEFAZOLIN IV 2,000 MG in DEXTROSE 5% 50ML 50 ML IV SCH (18:13)
[2016-08-08] MEDS: OXYCODONE HCL IR 5 MG TAB (IMMEDIATE RELEASE) PO PRN ×2 (18:58→22:53)
[2016-08-08] MEDS: OXYCODONE HCL 10 MG TABCR (OXYCONTIN) PO SCH (21:08)
[2016-08-08] MEDS: SENNA 8.6 MG TAB PO SCH (21:09)
[2016-08-08] MEDS: ASPIRIN 81 MG ECTAB PO SCH (21:10)
[2016-08-09] MEDS: ACETAMINOPHEN 500 MG TAB PO SCH ×4 (00:01→23:30)
[2016-08-09] MEDS: D5W AND 1/2NSS + 20MEQ KCL 1,000 ML IV SCH ×2 (00:01→10:00)
[2016-08-09] MEDS: CEFAZOLIN IV 2,000 MG in DEXTROSE 5% 50ML 50 ML IV SCH (01:29)
[2016-08-09] MEDS: OXYCODONE HCL IR 5 MG TAB (IMMEDIATE RELEASE) PO PRN ×3 (03:43→21:09)
[2016-08-09 03:44] VITALS: BP 114/70; PULSE 64; TEMP 36.5; O2SAT 93
[2016-08-09 06:03] LABS: HEMATOCRIT 33.8 % (42-52); MEAN CELL VOLUME 96.3 fL (80-100); MEAN CORPUSCULAR HEMOGLOBIN 30.2 pg (25-34); MEAN CORPUSCULAR HGB CONC 31.4 g/dl (32-36); MEAN PLATELET VOLUME 11.5 fL (7.4-10.4); PLATELET COUNT 128 K/uL (130-400); RED BLOOD COUNT 3.51 M/uL (4.7-6.1); WHITE BLOOD COUNT 7.39 K/uL (4.8-10.8)
[2016-08-09 06:43] LABS: BUN/CREATININE RATIO 24.2 (10-20); CREATININE 1.3 mg/dl (0.60-1.40); POTASSIUM 3.9 mmol/L (3.5-5.1)
[2016-08-09 07:30] VITALS: BP 132/85; PULSE 66; TEMP 36.5; O2SAT 94
[2016-08-09] MEDS: OXYCODONE HCL 10 MG TABCR (OXYCONTIN) PO SCH ×2 (08:03→19:57)
--- NOTE | 2016-08-09 08:42 | Orthopedic Progress Note ---
Orthopedic Progress Note Date of Service Aug 09, 2016. Subjective Post OP Day: 1 Reports: feeling well, pain controlled w PO medications, Denies: complaints, chest pain, SOB, nausea / vomiting, light headedness, calf pain Objective calves soft nontender, N/V intact, capillary refill less than 2 sec., dressing C /D/I, A&O x3, toes mobile Provena in tact Date Time Temp Pulse Resp B/P (MAP) Pulse Ox O2 Delivery O2 Flow Rate FiO2 08/09/16 07:30 36.5 66 22 132/85 (101) 94 Nasal Cannula 2.0 08/09/16 03:44 36.5 64 16 114/70 (85) 93 Nasal Cannula 2.0 08/08/16 23:30 Room Air 08/08/16 22:56 36.5 55 18 115/76 (89) 93 Nasal Cannula 2.0 08/08/16 21:15 114/76 (89) 08/08/16 16:32 36.4 60 12 98/59 (72) 97 Nasal Cannula 3.0 08/08/16 16:00 97 Nasal Cannula 2.0 08/08/16 15:17 36.4 61 14 114/63 (80) 97 Nasal Cannula 3.0 08/08/16 14:15 58 18 108/67 (81) 95 Nasal Cannula 3.0 08/08/16 13:43 56 18 110/65 (80) 97 Nasal Cannula 3.0 08/08/16 13:15 36.4 68 16 114/73 (87) 95 Nasal Cannula 2.0 08/08/16 13:15 Nasal Cannula 2.0 08/08/16 13:15 Nasal Cannula 2.0 08/08/16 12:58 72 15 97 08/08/16 12:58 66 15 08/08/16 12:53 70 17 94 08/08/16 12:53 69 17 08/08/16 12:48 69 17 93 08/08/16 12:48 69 17 08/08/16 12:47 70 16 117/72 93 08/08/16 12:47 71 16 08/08/16 12:42 70 18 08/08/16 12:42 69 18 97 08/08/16 12:37 67 15 08/08/16 12:37 69 15 91 08/08/16 12:32 71 14 08/08/16 12:32 71 14 132/80 97 08/08/16 12:30 36.6 71 14 132/80 97 Nasal Cannula 2 08/08/16 12:27 68 15 08/08/16 12:27 66 15 125/80 97 08/08/16 12:22 69 14 117/82 93 08/08/16 12:22 70 14 08/08/16 12:17 70 15 128/80 98 08/08/16 12:17 70 15 08/08/16 12:12 66 13 08/08/16 12:12 68 13 126/68 96 08/08/16 12:07 69 16 119/81 97 08/08/16 12:07 66 16 08/08/16 12:02 66 29 08/08/16 12:02 68 29 130/81 94 08/08/16 11:57 70 18 08/08/16 11:57 73 18 132/81 94 08/08/16 11:52 70 23 124/86 95 08/08/16 11:52 69 23 08/08/16 11:49 157/96 08/08/16 11:47 36.2 70 12 157/96 92 Nasal Cannula 2 Laboratory Results 24 Hours: Test 08/08/16 15:48 08/09/16 05:20 White Blood Count 9.29 K/uL Red Blood Count 3.63 M/uL Hemoglobin 10.7 g/dL 10.6 g/dL Hematocrit 34.6 % 33.8 % Mean Corpuscular Volume 95.3 fL Mean Corpuscular Hemoglobin 29.5 pg Mean Corpuscular Hemoglobin Concent 30.9 g/dl Platelet Count 153 K/uL Mean Platelet Volume 10.8 fL Neutrophils (%) (Auto) 85.9 % Lymphocytes (%) (Auto) 9.4 % Monocytes (%) (Auto) 3.7 % Eosinophils (%) (Auto) 0.5 % Basophils (%) (Auto) 0.2 % Neutrophils # (Auto) 7.98 K/uL Lymphocytes # (Auto) 0.87 K/uL Monocytes # (Auto) 0.34 K/uL Eosinophils # (Auto) 0.05 K/uL Basophils # (Auto) 0.02 K/uL Assessment & Plan Assessment: POD #1, Right TKA Plan: Pt/ OT DVT proph- asa D/C planning Home w Likely Thursday. As per medicine. Inhouse Planning Pain Management: Oxycontin, Morphine, PO Tylenol, Oxy IR DVT Prophylaxis: TEDs, SCDs, ASA Discharge Planning Discharge Planning: home with home health Pain Management: Oxycontin, PO Tylenol, Oxy IR DVT Prophylaxis: TEDs, ASA Therapy: Physical Therapy, Occupational Therapy
--- NOTE | 2016-08-09 08:51 | Hospitalist Progress Note ---
Hospitalist Progress Note Date of Service Aug 09, 2016. Subjective Pt evaluation today including: conversation w/ patient, physical exam, chart review, lab review, review of inpatient medication list Pain: Controlled with PO meds PO Intake: Tolerating PO diet Voiding: no voiding problems Patient reports feeling well. He has been controlling his pain with oral medications only. His numbness has resolved. He reports eating and urinating without any difficulties. He is passing gas but has not had a bowel movement yet. The patient denies fevers, chills, sweats, chest pain, palpitations, claudication, cough, wheezing, shortness of breath, nausea, vomiting, abdominal pain, dysuria, hematuria, urinary retention, paralysis, weakness, numbness and tingling. Additional Comments: See HPI for pertinent positives and negatives. All other systems reviewed and negative. Objective Vital Signs Date Time Temp Pulse Resp B/P (MAP) Pulse Ox O2 Delivery O2 Flow Rate FiO2 08/09/16 07:30 36.5 66 22 132/85 (101) 94 Nasal Cannula 2.0 08/09/16 03:44 36.5 64 16 114/70 (85) 93 Nasal Cannula 2.0 08/08/16 23:30 Room Air 08/08/16 22:56 36.5 55 18 115/76 (89) 93 Nasal Cannula 2.0 08/08/16 21:15 114/76 (89) 08/08/16 16:32 36.4 60 12 98/59 (72) 97 Nasal Cannula 3.0 08/08/16 16:00 97 Nasal Cannula 2.0 08/08/16 15:17 36.4 61 14 114/63 (80) 97 Nasal Cannula 3.0 08/08/16 14:15 58 18 108/67 (81) 95 Nasal Cannula 3.0 08/08/16 13:43 56 18 110/65 (80) 97 Nasal Cannula 3.0 08/08/16 13:15 36.4 68 16 114/73 (87) 95 Nasal Cannula 2.0 08/08/16 13:15 Nasal Cannula 2.0 08/08/16 13:15 Nasal Cannula 2.0 08/08/16 12:58 72 15 97 08/08/16 12:58 66 15 08/08/16 12:53 70 17 94 08/08/16 12:53 69 17 08/08/16 12:48 69 17 93 08/08/16 12:48 69 17 08/08/16 12:47 70 16 117/72 93 08/08/16 12:47 71 16 08/08/16 12:42 70 18 08/08/16 12:42 69 18 97 08/08/16 12:37 67 15 08/08/16 12:37 69 15 91 08/08/16 12:32 71 14 08/08/16 12:32 71 14 132/80 97 08/08/16 12:30 36.6 71 14 132/80 97 Nasal Cannula 2 08/08/16 12:27 68 15 08/08/16 12:27 66 15 125/80 97 08/08/16 12:22 69 14 117/82 93 08/08/16 12:22 70 14 08/08/16 12:17 70 15 128/80 98 08/08/16 12:17 70 15 08/08/16 12:12 66 13 08/08/16 12:12 68 13 126/68 96 08/08/16 12:07 69 16 119/81 97 08/08/16 12:07 66 16 08/08/16 12:02 66 29 08/08/16 12:02 68 29 130/81 94 08/08/16 11:57 70 18 08/08/16 11:57 73 18 132/81 94 08/08/16 11:52 70 23 124/86 95 08/08/16 11:52 69 23 08/08/16 11:49 157/96 08/08/16 11:47 36.2 70 12 157/96 92 Nasal Cannula 2 Physical Exam Notes: General Appearance: WD/WN, no apparent distress, + obese (morbidly obese) Head: normocephalic, atraumatic Eyes: normal inspection, PERRL, EOMI ENT: normal ENT inspection, hearing grossly normal, pharynx normal Neck: supple, no JVD, trachea midline Respiratory/Chest: lungs clear, normal breath sounds, no respiratory distress Cardiovascular: regular rate, rhythm, no gallop, no murmur Abdomen/GI: normal bowel sounds, non tender, soft Extremities/Musculoskelatal: no calf tenderness, normal capillary refill, + swelling (1+ pitting edema), + pertinent finding (RLE wrapped in nataliia bandage) Neurologic/Psych: alert, normal mood/affect, oriented x 3 Skin: normal color, warm/dry, no rash Laboratory Results Last 24 Hours Test 08/08/16 15:35 08/08/16 15:48 08/09/16 05:20 Sodium Level 145 mmol/L 145 mmol/L Potassium Level 4.0 mmol/L 3.9 mmol/L Chloride Level 109 mmol/L 109 mmol/L Carbon Dioxide Level 27 mmol/L 30 mmol/L Anion Gap 9.0 mmol/L 6.0 mmol/L Blood Urea Nitrogen 37 mg/dl 31 mg/dl Creatinine 1.50 mg/dl 1.30 mg/dl Est Creatinine Clear Calc Drug Dose 73.4 ml/min 84.7 ml/min Estimated GFR () 54.7 65.0 Estimated GFR (Non- 47.2 56.1 BUN/Creatinine Ratio 24.4 24.2 Random Glucose 158 mg/dl 104 mg/dl Calcium Level 8.4 mg/dl 8.0 mg/dl White Blood Count 9.29 K/uL 7.39 K/uL Red Blood Count 3.63 M/uL 3.51 M/uL Hemoglobin 10.7 g/dL 10.6 g/dL Hematocrit 34.6 % 33.8 % Mean Corpuscular Volume 95.3 fL 96.3 fL Mean Corpuscular Hemoglobin 29.5 pg 30.2 pg Mean Corpuscular Hemoglobin Concent 30.9 g/dl 31.4 g/dl Platelet Count 153 K/uL 128 K/uL Mean Platelet Volume 10.8 fL 11.5 fL Neutrophils (%) (Auto) 85.9 % Lymphocytes (%) (Auto) 9.4 % Monocytes (%) (Auto) 3.7 % Eosinophils (%) (Auto) 0.5 % Basophils (%) (Auto) 0.2 % Neutrophils # (Auto) 7.98 K/uL Lymphocytes # (Auto) 0.87 K/uL Monocytes # (Auto) 0.34 K/uL Eosinophils # (Auto) 0.05 K/uL Basophils # (Auto) 0.02 K/uL RDW Standard Deviation 51.2 fL 52.5 fL RDW Coefficient of Variation 14.5 % 14.9 % Immature Granulocyte % (Auto) 0.3 % Immature Granulocyte # (Auto) 0.03 K/uL Hepatitis C Antibody Screen NEG Assessment and Plan 70 y/o male with a history of HTN, HLD, gout, inflammatory polyarthritis, anxiety and depression, BPH and lower extremity edema who presents s/p right TKA with Dr. Mcgill on 08/08 for medical management. -Pain management, DVT prophylaxis, and PT/OT as per primary team -POD #1 HTN--stable -Continue amlodipine 10 mg PO qd -Hold enalapril. Renal function improved, but still not quite back to baseline. Pre op labs on 08/01 showed elevated creatinine of 1.7. Post op creatinine 1.5, down to 1.3 this morning. Baseline 1.1. Likely can resume enalapril tomorrow. -Cover with hydralazine 10 mg IV q6h prn SBP >180 Gout/polyarthritis -Continue allopurinol 300 mg PO qd -Increase Prednisone to 20 mg PO qd for stress dosing Anxiety and depression -Continue fluoxetine 60 mg PO qd BPH -Continue terazosin 5 mg PO qhs Lower extremity edema -Hold Lasix while on IVF. Lower extremity edema stable. Code Status -Level I, FULL RESUSCITATION STATUS Thank you for this consultation. We will continue to follow.
[2016-08-09] MEDS ORDERED: ENALAPRIL MALEATE 10 MG TAB PO SCH (09:00)
[2016-08-09] MEDS ORDERED: FUROSEMIDE 20 MG TAB PO SCH (09:00)
[2016-08-09] MEDS: MULTIVITAMIN TAB PO SCH (09:20)
[2016-08-09] MEDS: AMLODIPINE BESYLATE 5 MG TAB PO SCH (09:21)
[2016-08-09] MEDS: ASPIRIN 81 MG ECTAB PO SCH ×2 (09:22→21:06)
[2016-08-09] MEDS: CHOLECALCIFEROL 1000 INTER.UNIT TAB PO SCH (09:22)
[2016-08-09] MEDS: ALLOPURINOL 300 MG TAB PO SCH (09:23)
[2016-08-09] MEDS: FLUOXETINE HCL 20 MG CAP PO SCH (09:23)
[2016-08-09] MEDS: PANTOprazole SOD 40 MG TAB PO SCH (09:23)
[2016-08-09] MEDS: BOOST VANILLA PO SCH ×2 (09:30)
[2016-08-09 12:00] VITALS: BP 108/58; PULSE 67; TEMP 36.8; O2SAT 91
[2016-08-09 15:02] VITALS: BP 133/79; PULSE 68; TEMP 36.7; O2SAT 93
[2016-08-09 16:00] VITALS: O2SAT 93
[2016-08-09] MEDS: SENNA 8.6 MG TAB PO SCH (21:06)
[2016-08-09 23:11] VITALS: BP 155/92; PULSE 65; TEMP 36.8; O2SAT 94
[2016-08-10] MEDS: OXYCODONE HCL IR 5 MG TAB (IMMEDIATE RELEASE) PO PRN ×2 (06:18→19:26)
[2016-08-10 06:56] VITALS: BP 146/69; PULSE 70; TEMP 36.7; O2SAT 96
[2016-08-10 07:40] VITALS: O2SAT 90
[2016-08-10] MEDS: OXYCODONE HCL 10 MG TABCR (OXYCONTIN) PO SCH ×2 (08:07→21:06)
[2016-08-10] MEDS: ACETAMINOPHEN 500 MG TAB PO SCH ×3 (08:08→23:36)
[2016-08-10] MEDS: ASPIRIN 81 MG ECTAB PO SCH ×2 (08:08→21:07)
[2016-08-10] MEDS: BOOST VANILLA PO SCH ×2 (08:08)
[2016-08-10] MEDS: AMLODIPINE BESYLATE 5 MG TAB PO SCH (08:09)
[2016-08-10] MEDS: MULTIVITAMIN TAB PO SCH (08:09)
[2016-08-10] MEDS: PANTOprazole SOD 40 MG TAB PO SCH (08:10)
[2016-08-10] MEDS: CHOLECALCIFEROL 1000 INTER.UNIT TAB PO SCH (08:10)
[2016-08-10] MEDS: ALLOPURINOL 300 MG TAB PO SCH (08:10)
[2016-08-10] MEDS: FLUOXETINE HCL 20 MG CAP PO SCH (08:10)
--- NOTE | 2016-08-10 08:24 | Orthopedic Progress Note ---
Orthopedic Progress Note Date of Service Aug 10, 2016. Subjective Post OP Day: 2 Reports: feeling well, pain controlled w PO medications, Denies: complaints, chest pain, SOB, nausea / vomiting, light headedness, calf pain Additional Notes: not well in PT, 35 feet yesterday w 2 assists. on 2L O2 this am in bed Objective calves soft nontender, N/V intact, capillary refill less than 2 sec., dressing C /D/I, A&O x3, toes mobile prov[place] in tact Date Time Temp Pulse Resp B/P (MAP) Pulse Ox O2 Delivery O2 Flow Rate FiO2 08/10/16 06:56 36.7 70 20 146/69 (94) 96 Nasal Cannula 2.0 08/09/16 23:30 Nasal Cannula 2.0 08/09/16 23:11 36.8 65 18 155/92 (113) 94 Nasal Cannula 2.0 08/09/16 16:00 93 Nasal Cannula 2.0 08/09/16 15:02 36.7 68 20 133/79 (97) 93 Nasal Cannula 2.0 08/09/16 12:00 36.8 67 20 108/58 (75) 91 Room Air 08/09/16 11:08 Room Air Assessment & Plan Assessment: POD #2, Right TKA Plan: Pt/ OT DVT proph- asa D/C planning will monitor PT today, if he makes progress then d/c home, if not consider rehab. As per medicine. Inhouse Planning Pain Management: Oxycontin, Morphine, PO Tylenol, Oxy IR DVT Prophylaxis: TEDs, SCDs, ASA Discharge Planning Discharge Planning: home with home health Pain Management: Oxycontin, PO Tylenol, Oxy IR DVT Prophylaxis: TEDs, ASA Therapy: Physical Therapy, Occupational Therapy
[2016-08-10 15:19] VITALS: BP 129/79; PULSE 83; TEMP 37; O2SAT 92
[2016-08-10 16:00] VITALS: O2SAT 92
--- NOTE | 2016-08-10 17:19 | Progress Note ---
Subjective Date of Service: Aug 10, 2016. Subjective Pt evaluation today including: conversation w/ patient, conversation w/ family , physical exam, chart review, lab review, review of studies, conversation w/ professional housing consultant, review of inpatient medication list Continue doing well, no complaint, pain fairly controlled, continue refuse the idea of CPAP Problem List Medical Problems: (1) ALT (SGPT) level raised Status: Acute (2) Anemia Status: Acute (3) Elevated AST (SGOT) Status: Acute (4) Fluid overload Status: Acute (5) Knee pain Status: Acute (6) Pedal edema Status: Acute Review of Systems Constitutional: No fever, No chills, No sweats, No weight loss, No weakness, No fatigue, No problem reported Eyes: No worsening of vision, No eye pain, No redness, No discharge, No diplopia ENT: No hearing loss, No unusual epistaxis, No nasal symptoms, No sore throat, No tinnitus, No dental problems, No trouble swallowing Respiratory: No cough, No sputum, No wheezing, No shortness of breath, No dyspnea on exertion, No dyspnea at rest, No hemoptysis Cardiac: No chest pain, No orthopnea, No PND, No edema, No claudication, No palpitations Abdomen: No pain, No nausea, No vomiting, No diarrhea, No constipation Musculoskeletal: No joint pain, No muscle pain, No swelling, No calf pain Male : No dysuria, No urinary frequency, No incontinence, No nocturia more than once/night, No slowing stream, No hematuria Neurologic: No memory loss, No paralysis, No weakness, No numbness/tingling, No vertigo, No balance problems Psychiatric: No depression symptoms, No anhedonism, No anxiety, No insomnia, No substance abuse Heme: No abnormal bleeding/bruising, No clotting problems, No swollen lymph nodes, No night sweats Endo: No fatigue, No excessive thirst, No excessive urination Skin: No rash, No itch, No new/changing skin lesions, No color change, No bleeding Objective Vital Signs Date Time Temp Pulse Resp B/P (MAP) Pulse Ox O2 Delivery O2 Flow Rate FiO2 08/10/16 16:00 92 Room Air 08/10/16 15:19 37.0 83 16 129/79 (96) 92 Room Air 08/10/16 07:40 90 Room Air 08/10/16 06:56 36.7 70 20 146/69 (94) 96 Nasal Cannula 2.0 08/09/16 23:30 Nasal Cannula 2.0 08/09/16 23:11 36.8 65 18 155/92 (113) 94 Nasal Cannula 2.0 Physical Exam General Appearance: WD/WN, no apparent distress, + obese Eyes: normal inspection, PERRL, EOMI, sclerae normal ENT: normal ENT inspection, hearing grossly normal, pharynx normal Neck: supple, no adenopathy, thyroid normal, no JVD, no carotid bruits, trachea midline Respiratory/Chest: chest non-tender, lungs clear, normal breath sounds, no respiratory distress, no accessory muscle use Cardiovascular: regular rate, rhythm, no edema, no gallop, no JVD, no murmur Abdomen: normal bowel sounds, non tender, soft, no organomegaly, no pulsatile mass Extremities: normal range of motion, non-tender, normal inspection, no pedal edema, no calf tenderness, normal capillary refill, pelvis stable 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 Mcgill on 08/08 for medical management. -Pain management, DVT prophylaxis, and PT/OT as per primary team -POD #2 HTN--stable Gout/polyarthritis Anxiety and depression BPH The above condition stable continue home medication Obstructive sleep apnea, again patient supposed to be on CPAP machine, Again in front of nurse and patient's daughter, we discussed about sleep apnea need to be treated accordingly, may have bad consequence such as increased risk of the heart disease if not wearing CPAP machine or if not treated appropriately. Patient understand, but he seems does not care Currently patient's oxygen has been taper off Code Status -Level I, FULL RESUSCITATION STATUS Continued [facility] stay due to: multiple IV medications needed Discharge planning: home
[2016-08-10] MEDS: SENNA 8.6 MG TAB PO SCH (21:07)
[2016-08-10 22:49] VITALS: BP 146/90; PULSE 70; TEMP 36.8; O2SAT 93
[2016-08-11 07:07] VITALS: BP 147/89; PULSE 72; TEMP 36.7; O2SAT 93
[2016-08-11] MEDS: OXYCODONE HCL 10 MG TABCR (OXYCONTIN) PO SCH (07:39)
[2016-08-11] MEDS: ACETAMINOPHEN 500 MG TAB PO SCH ×2 (07:39→16:13)
[2016-08-11] MEDS: MULTIVITAMIN TAB PO SCH (07:39)
[2016-08-11] MEDS: FLUOXETINE HCL 20 MG CAP PO SCH (07:39)
[2016-08-11] MEDS: CHOLECALCIFEROL 1000 INTER.UNIT TAB PO SCH (07:40)
[2016-08-11] MEDS: ASPIRIN 81 MG ECTAB PO SCH (07:40)
[2016-08-11] MEDS: OXYCODONE HCL IR 5 MG TAB (IMMEDIATE RELEASE) PO PRN ×2 (07:40→16:13)
[2016-08-11] MEDS: AMLODIPINE BESYLATE 5 MG TAB PO SCH (07:40)
[2016-08-11] MEDS: PANTOprazole SOD 40 MG TAB PO SCH (07:40)
[2016-08-11] MEDS: ALLOPURINOL 300 MG TAB PO SCH (07:40)
[2016-08-11] MEDS: BOOST VANILLA PO SCH ×2 (07:45)
[2016-08-11 10:16] VITALS: BP 147/89; PULSE 72; TEMP 36.7; O2SAT 93
--- NOTE | 2016-08-11 10:34 | Clinical Documentation Query ---
GEORGE Wilson : CLINICAL DOCUMENTATION QUERY Patient is a 70 year old male admitted for elective right TKA. Preoperative BUN and creatinine 40 mg/dl and 1.70 mg/dl. POD #0, repeat values were 37 mg/dl and 1.50 mg/dl. The following day, further improved to 31 mg/dl and 1.30 mg/dl. Baseline creatinine noted to be 1.1 mg/dl associated with an estimated GFR of 69 ml/min. As appropriate, please consider clarification as suggested below. Thank you. In your clinical opinion is this patient being managed for: ( ) Acute kidney failure, POA, on CKD stage 2 ( ) Other explanation of clinical findings (Please Explain) ( x ) Unable to determine (Please Define) ( ) Need to Discuss ( ) Not Agree The medical record reflects the following clinical findings, treatment, and risk factors. Clinical Indicators: As above Treatment: Holding of Enalapril, serial chemistries, IVF Risk Factors: Age, hypertension, NPO status Please clarify and document your clinical opinion in the progress notes and discharge summary. Terms such as "probable", "suspected", "likely", "questionable", "possible", or "still to be ruled out" are acceptable. IF IN AGREEMENT, YOU MUST DOCUMENT ABOVE DIAGNOSTIC STATEMENT IN DAILY PROGRESS NOTES AND DISCHARGE SUMMARY. This document is not part of the patient's record. Thank You, Jairo Rogers, KITTY [phone]
[2016-08-11] MEDS ORDERED: RXC5 PO (12:03)
[2016-08-11] MEDS ORDERED: MORP-157 PO (12:03)
[2016-08-11] MEDS ORDERED: ONDA8TAB6 PO (12:03)
[2016-08-11] MEDS ORDERED: SNK PO (12:03)
[2016-08-11] MEDS ORDERED: ASPI81TA28 PO (12:03)
[2016-08-11] MEDS ORDERED: ACET-1138 PO (12:03)
--- NOTE | 2016-08-11 12:04 | Discharge Instructions ---
Discharge Instructions Date of Service Aug 11, 2016. Admission Reason for Admission: Right Knee Degenerative Arthritis Discharge Discharge Diagnosis / Problem: sp right TKA Discharge Goals Goal(s): Decrease discomfort, Improve function, Increase independence Activity Recommendations Activity Level: Assistance Required Therapies: Physical Therapy, Occupational Therapy Weightbearing Status: Right weightbearing (as tolerated) . Additional Information Patient informed of condition: Yes Advance Directives: Yes DNR: No Level of Care: Acute Rehab Communicable Disease: No Prognosis: Stable Instructions / Follow-Up Instructions / Follow-Up ACTIVITY RECOMMENDATIONS: SELF CARE INSTRUCTIONS AFTER TOTAL KNEE REPLACEMENT A. You may need to continue a physical therapy program after discharge from the hospital. There are several options available to you. Your doctor will assist you in selecting the best one for you. 1. An out-patient facility 2 to 3 times a week for therapy or home therapy. 2. Continue working on all exercises taught to you in the hospital. Your goals should be to increase bending of your knee to 90 degrees and beyond and to fully straighten your knee. B. You may progress at your own pace from walking with a walker or crutches to a cane; then to no assistive devices. C. Make walking a part of your daily routine. Be up as much as comfortable with rest periods throughout the day. Rest with leg elevation is very important. Use the ice wrap frequently for the first 3-4 weeks. D. There are no restrictions on activities. 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 E. Wear the long elastic stockings (VASQUEZ hose) 20 hours a day for 2 weeks after surgery. They can be removed several times a day for laundering and for a bath. F. You may shower, no tub baths until cleared by your doctor. SPECIAL CARE INSTRUCTIONS: VERY IMPORTANT TO READ AND REVIEW A. There are a few signs you need to watch for after you are home. Call [facility] if you notice any of the followin. Increased severe knee pain. Some pain is expected especially when you exercise. 2. Increased swelling in your leg or knee; pain or swelling of the calf muscle in either lower leg. 3. Any fluid drainage from the incision. 4. Shortness of breath or chest pain. B. Please call [facility] at if you have any concerns or questions about your operation or recovery. The doctor or his nurse will return your call promptly. C. You must take antibiotics before dental work, bladder, bowel or other surgery. Your doctor will provide you with a permanent care to carry describing this precaution. IMPORTANT: * REMEMBER TO TAKE ASPIRIN, 81 MG, TWICE DAILY FOR 4 WEEKS UNLESS OTHERWISE DIRECTED. THIS IS YOUR BLOOD THINNER. * HIGH RISK PATIENTS MAY BE PRESCRIBED A STRONGER BLOOD THINNER. THIS WILL BE PROVIDED AT DISCHARGE. * CALL IF INCREASED PAIN, REDNESS, DRAINAGE OR FEVER GREATER THAT 101. * WEAR VASQUEZ HOSE 20 HOURS PER DAY FOR 2 WEEKS. Prevena- This is a large suction dressing covering your incision. This will help pull any excess drainage from the wound and allow your incision to heal properly. You may shower with this if you can keep the unit outside of the shower. If any bleeding or leakage is noted please call your doctor's office. This will remain on your incision for 7 days and then should be removed. This can be done yourself or by the home nursing staff if applicable. The entire unit is disposable once removed. Once removed, keep incision clean and dry. If redness or drainage is noted, please call your surgeon. FOLLOW UP VISIT: If appointment is not already scheduled: Please call [facility] to make a follow-up appointment for 2 weeks after your surgery at . Current Hospital Diet Patient's current hospital diet: Regular Diet Discharge Diet Recommended Diet: Regular Diet Procedures Procedures Performed: Right Total Knee Arthroplasty W REVISION COMPONENTS Pending Studies Studies pending at discharge: no Laboratory Results Hemoglobin A1c Test 05/15/16 16:15 Range/Units Estimated Average Glucose 105 mg/dl Hemoglobin A1c 5.3 4.5-5.6 % Medical Emergencies . Who to Call and When: Medical Emergencies: If at any time you feel your situation is an emergency, please call 911 immediately. . Non-Emergent Contact Non-Emergency issues call your: Surgeon . . "Provider Documentation" section prepared by Aury Tolbert. . Core Measure Problem Core Measures: None [place] Drug Monitoring Program Search Results: patient reviewed within database, no issues identified
[2016-08-11 14:57] VITALS: BP 134/60; PULSE 71; TEMP 37; O2SAT 95
--- NOTE | 2016-08-11 15:13 | DISCHARGE SUMMARY ---
DISCHARGE DIAGNOSIS: Degenerative joint disease, right knee. SECONDARY DIAGNOSES: Morbid obesity, malnutrition. CONSULTS: Dr. Downing. COMPLICATIONS: None. PROCEDURE: The patient underwent a right total knee arthroplasty with Dr. Mcgill on 08/08/2016. BRIEF HISTORY: Please see previously dictated history and physical. HOSPITAL SUMMARY: The patient was admitted on the above day for the above procedure. Procedure went without complication. Postop day #1, the patient was feeling well without complaints. He denied chest pain or shortness of breath. Vital signs were stable. He was afebrile. Dressing was clean, dry and intact. He was neurovascularly intact. Calves were soft and nontender. Prevena was intact. Hemoglobin was 10.6. The patient began physical therapy per protocol. Postop day #2, the patient was slow to progress in physical therapy, ambulated 35 feet with 2 assist. Vital signs were stable. He was afebrile. Dressing was clean, dry and intact. He was neurovascularly intact. Calves were soft and nontender. The patient continued to progress with physical therapy. Referral was made to [facility]. Postop day #3, the patient continued to improve. He denied chest pain or shortness of breath. Vital signs were stable. He was afebrile. Pain was controlled. Prevena dressing was clean, dry and intact. He was neurovascularly intact. Calves were soft and nontender. The patient progressed with physical therapy. He was accepted at [facility] and was transferred later that day in stable condition. For further review, please see the chart. Laboratory, x-ray data and discharge instructions as per chart.
--- NOTE | 2016-08-11 17:31 | Progress Note ---
Subjective Date of Service: Aug 11, 2016. Subjective pt was seen prior to discharge, had no complaints has wound vac in place and some lower extremity edema Problem List Medical Problems: (1) ALT (SGPT) level raised Status: Acute (2) Anemia Status: Acute (3) Elevated AST (SGOT) Status: Acute (4) Fluid overload Status: Acute (5) Knee pain Status: Acute (6) Pedal edema Status: Acute Review of Systems Constitutional: + weakness, + fatigue, No fever, No chills Respiratory: No cough, No sputum, No wheezing, No shortness of breath Cardiac: + edema, No chest pain, No orthopnea, No PND Musculoskeletal: + joint pain, + muscle pain, + swelling Neurologic: + weakness, No paralysis, No numbness/tingling, No vertigo Objective Vital Signs Date Time Temp Pulse Resp B/P (MAP) Pulse Ox O2 Delivery O2 Flow Rate FiO2 08/11/16 08:09 Room Air 08/11/16 07:07 36.7 72 16 147/89 (108) 93 Room Air 08/10/16 23:25 Room Air 08/10/16 22:49 36.8 70 16 146/90 (108) 93 Room Air 08/10/16 16:00 92 Room Air 08/10/16 15:19 37.0 83 16 129/79 (96) 92 Room Air Physical Exam General Appearance: WD/WN, + mild distress Neck: supple, no JVD Respiratory/Chest: chest non-tender, lungs clear, normal breath sounds, no respiratory distress Cardiovascular: regular rate, rhythm, no murmur Abdomen: normal bowel sounds, non tender, soft, no organomegaly Extremities: + pedal edema, + swelling Assessment and Plan 70 y/o male with a history of HTN, HLD, gout, inflammatory polyarthritis, anxiety and depression, BPH and lower extremity edema who presents s/p right TKA with Dr. Mcgill on 08/08 for medical management. acute renal failure resolved with ivf HTN--stable Gout/polyarthritis, resumed prednisone Anxiety and depression stable BPH voiding -Level I, FULL RESUSCITATION STATUS Continued [facility] stay due to: multiple IV medications needed Discharge planning: home
== END 2016-08-11 16:49 | DRG 470 ==
LOC: C.ACU 06:36 → C.3E 07:00 → ENRESERV 12:49
PROVIDERS: ADMIT Orthopaedic Surgery; ATTEND Orthopaedic Surgery
PROC: 0SRC0J9 Replacement of Right Knee Joint with Synthetic Substitute, Cemented, Open Approach (ICD-10-PCS; principal; 2016-08-11)
DX: M17.11 Unilateral primary osteoarthritis, right knee (principal); N17.9 Acute kidney failure, unspecified; E46 Unspecified protein-calorie malnutrition; Z68.42 Body mass index [BMI] 45.0-49.9, adult; M21.161 Varus deformity, not elsewhere classified, right knee; R60.0 Localized edema; M06.4 Inflammatory polyarthropathy; J44.9 Chronic obstructive pulmonary disease, unspecified; I25.10 Atherosclerotic heart disease of native coronary artery without angina pectoris; I12.9 Hypertensive chronic kidney disease with stage 1 through stage 4 chronic kidney disease, or unspecified chronic kidney disease; N18.9 Chronic kidney disease, unspecified; R77.0 Abnormality of albumin; K21.9 Gastro-esophageal reflux disease without esophagitis; M10.9 Gout, unspecified; N40.0 Benign prostatic hyperplasia without lower urinary tract symptoms; D64.9 Anemia, unspecified; F41.9 Anxiety disorder, unspecified; F32.9 Major depressive disorder, single episode, unspecified; E66.01 Morbid (severe) obesity due to excess calories; G47.33 Obstructive sleep apnea (adult) (pediatric); Z96.642 Presence of left artificial hip joint; Z91.19 Patient's noncompliance with other medical treatment and regimen; Z79.82 Long term (current) use of aspirin; Z79.891 Long term (current) use of opiate analgesic; Z79.52 Long term (current) use of systemic steroids; Z79.899 Other long term (current) drug therapy